=== PATIENT | male | born 1975 | race Caucasian/White ===

== ENCOUNTER 2018-03-20 12:52 | Emergency (ER) | payer MEDICAID, OTHER ==
[~2018-03-20] VITALS: Ht 175.3 cm; Wt 72.6 kg
[~2018-03-20 12:52] MED LIST: LEVO25TA6 PO
[2018-03-20 13:27] VITALS: BP 106/71
[2018-03-20] MEDS ORDERED: LET TOPICAL SOLN 5 ML TOP ONE (16:15)
[2018-03-20] MEDS ORDERED: HYDROcodone-ACET 10/325MG TAB PO ONE (16:15)
== END 2018-03-20 17:19 | disposition home or self-care (01) ==
LOC: ER 12:52
DX: K64.4 Residual hemorrhoidal skin tags (principal); Z87.442 Personal history of urinary calculi

== ENCOUNTER 2022-06-05 07:52 | Emergency (ER) | payer OTHER, MEDICAID ==
[~2022-06-05] VITALS: Ht 175.3 cm; Wt 64.5 kg
[2022-06-05 08:11] VITALS: BP 120/69
[2022-06-05 08:56] LABS: Basophils # (auto) 0 10 ^3/uL (0-0.2); Basophils % (auto) 0.4 % (0.0-2.0); Eosinophils # (auto) 0 10 ^3/uL (0-0.8); Eosinophils % (auto) 0.4 % (0.0-7.0); Hematocrit 45.8 % (41.0-53.0); Lymphocytes # (auto) 0.7 10 ^3/uL (0.4-5.4); Lymphocytes % (auto) 19.5 % (10.0-50.0); Mean Corpuscular Hemoglobin 30.8 pg (28.0-32.0); Monocytes # (auto) 0.5 10 ^3/uL (0-1.3); Monocytes % (auto) 13.4 % (0.0-12.0); Neutrophils # (auto) 2.5 10 ^3/uL (1.6-8.6); Neutrophils % (auto) 66.3 % (37.0-80.0); Nucleated Red Blood Cells % 0.3 %; Red Blood Cells 5.21 10^6/uL (4.5-5.90); Red Cell Distribution Width 13.7 % (11.8-14.3); White Blood Cell 3.8 10^3/uL (4.4-10.8)
[2022-06-05 09:04] LABS: Albumin 4.1 g/dL (3.4-5.0); Calcium 9.1 mg/dL (8.5-10.1); Potassium 4.3 mmol/L (3.5-5.1)
[2022-06-05 09:09] LABS: BUN/Creatinine Ratio 14.3; Bilirubin, Total 0.8 mg/dL (0.2-1.0); Total Protein 6.9 g/dL (6.4-8.2)
[2022-06-05 09:40] LABS: Urine Bacteria NONE SEEN /hpf (None Seen); Urine Blood Negative /uL (Negative); Urine Mucus FEW (None Seen); Urine Specific Gravity 1.029 (1.001-1.035); Urine WBC 2 /hpf (0 - 3)
[2022-06-05] MEDS ORDERED: SODIUM CHLORIDE 0.9% 1,000 ML IV ONE (11:30)
[2022-06-05] MEDS ORDERED: SODIUM CHLORIDE 0.9% 1,000 ML IVB ONE (11:30)
[2022-06-05] MEDS ORDERED: ALBUTEROL SULF 2.5 MG/0.5ML(0.5%) NEB SOLN NEB ONE (11:30)
[2022-06-05] MEDS ORDERED: IPRATROPIUM BROM 0.5 MG/2.5ML INH SOL NEB ONE (11:30)
== END 2022-06-05 15:13 | disposition left against medical advice (07) ==
LOC: ER 07:52
DX: B34.9 Viral infection, unspecified (principal); J40 Bronchitis, not specified as acute or chronic; E03.9 Hypothyroidism, unspecified; Z20.822 Contact with and (suspected) exposure to COVID-19
CPT/HCPCS: 36415; 71046; 80053; 81001; 83735; 84443; 84484; 85025; 87426; 87804; 93005; 94640; 99285; J7644

== ENCOUNTER 2024-09-15 23:39 | Emergency (ER) | payer OTHER, MEDICAID ==
[~2024-09-15] VITALS: Ht 177.8 cm; Wt 69.1 kg
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
[2024-09-16] MEDS: LIDOCAINE W/ EPINEPHRINE 2% INJ 20ML VIAL IJ ONE (00:46)
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
[2024-09-16 02:01] VITALS: BP 126/84; PULSE 74; RESP 17; TEMP 98; O2SAT 98
[2024-09-16] MEDS: HYDROcodone-ACET 5/325MG TAB PO ONE (02:08)
[2024-09-16] MEDS: TETANUS-DIPTH-ACEL PERTUSSIS 0.5ML SYR Tdap IM ONE (02:09)
== END 2024-09-16 02:24 | disposition home or self-care (01) ==
LOC: ER 23:39
DX: S01.01XA Laceration without foreign body of scalp, initial encounter (principal); S01.81XA Laceration without foreign body of other part of head, initial encounter; M19.90 Unspecified osteoarthritis, unspecified site; Z79.899 Other long term (current) drug therapy; Y00.XXXA Assault by blunt object, initial encounter; Y93.89 Activity, other specified; Y92.009 Unspecified place in unspecified non-institutional (private) residence as the place of occurrence of the external cause; Y99.8 Other external cause status
CPT/HCPCS: 12001; 12011; 70450; 72125; 90471; 90715

== ENCOUNTER 2025-06-06 06:27 | Inpatient (IN) | payer MEDICAID ==
[~2025-06-06] VITALS: Ht 175.3 cm; Wt 73.3 kg
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
[2025-06-06 08:15] VITALS: PULSE 52; RESP 11; O2SAT 97
[2025-06-06] MEDS ORDERED: ONDANSETRON HCL 4 MG/2 ML VIAL IV PRN (08:15)
--- NOTE | 2025-06-06 08:16 | DVHHP2 ---
History of Present Illness Reason for Visit: Seizure History of Present Illness Erwin Reyna is a 50-year-old male with past medical history of arthritis, nephrolithiasis, hypothyroidism who presents to the ED with status post seizure that occurred while he was sleeping at 5:00 a.m. with reports of tonic-clonic activity and urine incontinence with foaming at the mouth lasting approximately 3 minutes. Patient states that he does not recall what happened last night or what happened during the seizure but that his was there to witness it. Patient reports that this is the 1st seizure that he has had and that he does not see a neurologist. Upon evaluation after discussing history with patient, he shortly had an active seizure with tonic-clonic activity lasting about 1-2 minutes. Patient was given Ativan and placed on a non-rebreather as patient was desaturating to 91% on room air. Patient denies any recent trauma or injury, recent sick contacts, recent travels, recent ingestion of spoiled food, chest pain, shortness of breath, fever, chills, lightheadedness, weakness, dizziness, abdominal pain, nausea, vomiting, diarrhea, urinary symptoms. Endocrine: Hypothyroidism Past Medical History Arthritis Nephrolithiasis Past Surgical History: Other (EGD, left total hip replacement, and right total knee replacement) Family History: None Smoke: No ALCOHOL: none Drugs: Marijuana Lives: with Family Domestic Violence: Neg Review of Systems Neurological: Seizures Allergies: Coded Allergies: NO KNOWN ALLERGIES (Unverified , 02/02/16) Exam Vital Signs Vital Signs Date Time Temp Pulse Resp B/P (MAP) Pulse Ox O2 Delivery O2 Flow Rate FiO2 06/06/25 06:27 97.1 77 18 119/75 100 97.1 General Appearance: Alert, Oriented X3, Cooperative HEENT: Atraumatic, PERRLA, EOMI, Mucous membr. moist/pink Respiratory: Normal air movement Cardiovascular: Normal S1, Normal S2 Abdominal: Normal bowel sounds, Soft Extremities: No clubbing, No cyanosis, No edema, Normal pulses Neuro: Normal speech, Normal tone, Sensation intact Psych/Mental Status: Mental status NL, Mood NL Labs/Xrays Labs Test 06/06/25 08:04 Range/Units EXAM: CT HEAD WITHOUT CONTRAST INDICATION: Rule out intracranial hemorrhage. TECHNIQUE: CT of the head without intravenous contrast. Coronal and sagittal reformatted images are submitted. Radiation Dose : 1. Head: CT Dose: CTDI volume is 53.5 mGy. Dose-length product is 966.7 mGy*cm The dose indicators for CT are the volume Computed Tomography (CT) Dose Index (CTDIvol) and the Dose Length Product (DLP), and are measured in units of mGy and mGy-cm, respectively. These indicators are not patient dose, but values generated from the CT scanner acquisition factors. The report includes radiation exposure data for exposures received during this examination. All CT scans at this medical facility are performed using dose modulation techniques as appropriate to a performed exam including the following: Automated exposure control was utilized; adjustment of the MA and/or KV according to patient size; and use of iterative reconstruction technique. COMPARISON: CT HEAD WITHOUT CONTRAST on DOS: 09/16/24. FINDINGS: There is no evidence of acute intracranial hemorrhage, extra-axial collection, mass effect, midline shift, herniation or hydrocephalus. The ventricles, sulci and cisterns are age appropriate. The terry-white differentiation is intact. The visualized paranasal sinuses and mastoid air cells are clear. No depressed calvarial fracture. The surrounding soft tissues are unremarkable. IMPRESSION: 1. No evidence of acute intracranial abnormality. SEPSIS Sepsis Screen Date sepsis recognized/suspect: Jun 06, 2025 Time Sepsis recognized/suspect: 626 Recent Procedure: No On Antibiotic Therapy: No Respiratory Rate >20: No Heart Rate >90: No Temp<36 C (96.8 F) or >38.3 C: No SBP <90 or MAP <65 mmHG: No New Acute Mental Status Change: No Is the patient on CPAP, BIPAP,: No Physician Orders Complete Blood Count (06/06/25 07:05) Basic Metabolic Panel (06/06/25 07:05) Drug Screen (06/06/25 07:05) Urine Ethanol (06/06/25 07:05) Head Without Contrast (06/06/25 07:05) Vital Signs Date Time Temp Pulse Resp B/P (MAP) Pulse Ox O2 Delivery O2 Flow Rate FiO2 06/06/25 06:27 97.1 77 18 119/75 100 97.1 Laboratory Tests Test 06/06/25 08:04 White Blood Count Pending Assessment/Plan Assessment/Plan Assessment Seizure disorder Positive marijuana use History of arthritis History of nephrolithiasis History of hypothyroidism History of EGD History of left total hip replacement History of right total knee replacement Plan Admit To med surge Seizure precautions Ativan p.r.n. for seizures CT head Urine ethanol UDS Keppra UA Diet Home medications reconciled DVT prophylaxis-not indicated patient ambulating PUD prophylaxis-not indicated no history of GERD or GI bleed Discussed plan of care with patient and nurse Counseled patient on cessation of marijuana use Neurology consult [id number] Behavior change smoking greater than 10 minutes about use of other options also gave option of nicotine patch [id number] Preventive counseling healthy eating habits, physical activity, and regular checkups Plan discussed with: Patient Date of Service: Jun 06, 2025 Billing Provider: JEFFERY GAYTAN Common Visit Codes: [id number] INP/OBS CARE (HIGH) Secondary Visit Codes: [id number] COUNSELING IND, [id number] CHNG SMOKING >10MIN JEFFERY GAYTAN Jun 06, 2025 08:16
[2025-06-06 08:18] LABS: Hematocrit 41.0 % (41.0-53.0); Hemoglobin 14.6 g/dL (13.5-17.5); Mean Corpuscular Hemoglobin 31.9 pg (28.0-32.0); Mean Corpuscular Volume 90.0 fL (80.0-100.0); Nucleated Red Blood Cells % 0.1 %
[2025-06-06] MEDS: ACETAMINOPHEN 325 MG TAB PO ONE (08:22)
--- NOTE | 2025-06-06 08:24 | DVH ---
EXAM: CT HEAD WITHOUT CONTRAST INDICATION: Rule out intracranial hemorrhage. TECHNIQUE: CT of the head without intravenous contrast. Coronal and sagittal reformatted images are submitted. Radiation Dose : 1. Head: CT Dose: CTDI volume is 53.5 mGy. Dose-length product is 966.7 mGy*cm The dose indicators for CT are the volume Computed Tomography (CT) Dose Index (CTDIvol) and the Dose Length Product (DLP), and are measured in units of mGy and mGy-cm, respectively. These indicators are not patient dose, but values generated from the CT scanner acquisition factors. The report includes radiation exposure data for exposures received during this examination. All CT scans at this medical facility are performed using dose modulation techniques as appropriate to a performed exam including the following: Automated exposure control was utilized; adjustment of the MA and/or KV according to patient size; and use of iterative reconstruction technique. COMPARISON: CT HEAD WITHOUT CONTRAST on DOS: 09/16/24. FINDINGS: There is no evidence of acute intracranial hemorrhage, extra-axial collection, mass effect, midline shift, herniation or hydrocephalus. The ventricles, sulci and cisterns are age appropriate. The terry-white differentiation is intact. The visualized paranasal sinuses and mastoid air cells are clear. No depressed calvarial fracture. The surrounding soft tissues are unremarkable. IMPRESSION: 1. No evidence of acute intracranial abnormality.
[2025-06-06 08:26] LABS: Potassium 4.0 mmol/L (3.5-5.1); Sodium 140 mmol/L (136-145)
[2025-06-06 08:27] LABS: Anion Gap 6 (5-15); Carbon Dioxide 25 mmol/L (20-31)
[2025-06-06] MEDS ORDERED: LEVOTHYROXINE SODIUM 25 MCG TAB PO SCH (08:27)
[2025-06-06 08:28] LABS: Calcium 9.1 mg/dL (8.7-10.4)
[2025-06-06 08:32] LABS: BUN/Creatinine Ratio 15.0 (10.0-20.0); Blood Urea Nitrogen 15 mg/dL (9-23)
[2025-06-06 08:34] LABS: Chloride 109 mmol/L (98-107); Glucose 110 mg/dL (74-106)
[2025-06-06 09:04] LABS: Amphetamine Screen, Urine Neg (NEGATIVE); Barbiturate Scree,Urine Neg (NEGATIVE); Benzodiazephine Screen, Urine Neg (NEGATIVE); Cannabinoid Screen, Urine Pos (NEGATIVE); Cocaine Screen, Urine Neg (NEGATIVE); Opiate Scree,Urine Neg (NEGATIVE); Phencyclidine Screen, Urine Neg (NEGATIVE)
[2025-06-06] MEDS: LORazepam 2MG/ML-1ML VIAL IV ONE (09:30)
[2025-06-06] MEDS: levETIRAcetam 1000 mg/100ml 100 ML IV ONE (09:40)
[2025-06-06] MEDS: LORazepam 2MG/ML-1ML VIAL ONE (09:41)
[2025-06-06] MEDS ORDERED: levETIRAcetam 500 mg/100ml 100 ML IV SCH (10:00)
[2025-06-06] MEDS: levETIRAcetam 1000 mg/100ml 100 ML IV SCH (10:56)
[2025-06-06] MEDS: LEVOTHYROXINE SODIUM 100 MCG TAB PO SCH (10:57)
[2025-06-06 11:04] LABS: Urine Protein, UAD TRACE (Negative)
[2025-06-06 13:05] VITALS: BP 114/68; PULSE 56; RESP 18; TEMP 98; O2SAT 95
--- NOTE | 2025-06-06 14:43 | DVHINCON2 ---
Date of service: Jun 06, [address] Cordon Reason for Consultation Seizure History of Present Illness Mr. Reyna is a 50 years old right-handed gentleman with a history of hypothyroidism, kidney stone, arthritis, he is brought to the [facility] on 06/06/2025 with a chief complaint of seizure activity, at this time, he is alert and fully oriented, he provided the following history He remembers going to the bed in the evening, but next memory was waking up in his father's car heading the hospital, because he had seizure. In the ER, he had another seizure-like activity. According to the ER note, at home, he had tonic-clonic activity with urinary incontinence, foaming in the mouth, the event was about 3 minutes. He has never had similar problem before, he denies a history of olfactory/gustatory hallucination He denies history of head trauma, intracranial infection, family history of seizure disorder He denies a history of drug/alcohol abuse He has no sleep deprivation, or acute illness recently Urinalysis, 06/06/2025: Unremarkable UDS, 06/06/2025: Cannabinoids Plasma alcohol, 06/06/2025: Normal WBC/HB/PLT/MCV, 06/06/2025: 6/40.6/107/90 BMP, 06/06/2025: Unremarkable CT head, 06/06/2025: No evidence of acute intracranial abnormality. Past Medical History Hypothyroidism, kidney stone, arthritis Past Surgical History Hip surgery, abdominal surgery Family History: Patient reports no known family medical history. Family History No major medical problems Social History He was a tobacco smoker, he denies a history of alcohol and drug abuse Allergies: Coded Allergies: NO KNOWN ALLERGIES (Unverified , 02/02/16) Home Meds Reported Medications Levothyroxine Sodium (Levothyroxine Sodium) 25 Mcg Tab, 10 MCG PO QAM, MCG 02/02/16 Current Medications Current Medications Medications (Trade) Dose Ordered Sig/Irma Route PRN Reason Start Time Stop Time Status Last Admin Levetiracetam 100 ml @ 400 mls/hr BID IV 06/06/25 10:00 06/06/25 10:35 DC Ondansetron HCl (Zofran) 4 mg Q4HP PRN IV NAUSEA / VOMITING 06/06/25 08:15 Acetaminophen (Tylenol Tablet) 650 mg Q6HP PRN PO PAIN SCALE 1-3 OR TEMP>100.4 06/06/25 08:15 Levothyroxine Sodium (Synthroid Tablet) 10 mcg QAM PO 06/06/25 08:27 06/06/25 10:35 DC Lorazepam (Ativan Inj) 1 mg Q5MINP PRN IV SEIZURES 06/06/25 10:30 Levothyroxine Sodium (Synthroid Tablet) 100 mcg QAM@0600 PO 06/06/25 10:57 Levetiracetam 100 ml @ 400 mls/hr BID IV 06/06/25 10:56 Review of Systems As above, the other systems are negative Vital Signs Vital Signs Date Time Temp Pulse Resp B/P (MAP) Pulse Ox O2 Delivery O2 Flow Rate FiO2 06/06/25 13:05 98.0 56 18 114/68 (83) 95 98.0 06/06/25 08:15 Room Air* 0 21 Physical Exam GENERAL EXAM: General: the patient is well developed and nourished. No acute distress. HEENT: Normocephalic, neck is supple, no carotid bruits. No mass. RESPIRATORY: Normal respiratory effort with symmetrical lung expansion. Lungs clear to auscultation. CARDIOVASCULAR: Regular rate and rhythm with no murmurs. S1, S2. ABDOMEN: Soft, nontender, normal bowel sound NEUROLOGICAL: MENTAL STATUS: Awake and alert. Oriented to person, place, time and general circumstances. Able to give personal history SPEECH, LANGUAGE, HIGHER CORTICAL FUNCTION: no aphasia or dysathria. CRANIAL NERVES: #2: Intact visual sheriff to confrontation. The optic discs were sharp. #3,4,6: Pupils are equal, round and reactive. EOMs full and conjugate. No nystagmus. #5: Facial sensation intact in all three divisions bilaterally. Mandibular str ength intact. #7: Facial muscles symmetrical and strength intact. #8: Hearing grossly normal to voice. #9,10: Uvula and soft palate rise in the midline. Swallow and voice are normal. #11: Trapezius and sternomastoid strength intact bilaterally. #12: Tongue midline. No fasciculations or atrophy. SENSATION: Sensation to touch and pinprick is normal. MOTOR: Normal tone in the upper and lower extremity. Normal muscle bulk. No fasciculations. No abnormal movements or posturing. Muscle strength of the major groups in the upper extremities is 5/5. Muscle strength of the major groups in the lower extremities is 5/5. REFLEXES: Deep tendon reflexes normal and symmetrical. No pathological reflexes. CEREBELLAR/COORDINATION: Finger to nose is normal bilaterally. GAIT/STATION: deferred. Labs/Diagnostic Data Labs Test 06/06/25 08:04 06/06/25 07:59 Range/Units White Blood Count 6.0 4.4-10.8 10^3/uL Red Blood Count 4.56 4.5-5.90 10^6/uL Hemoglobin 14.6 13.5-17.5 g/dL Hematocrit 41.0 41.0-53.0 % Mean Corpuscular Volume 90.0 80.0-100.0 fL Mean Corpuscular Hemoglobin 31.9 28.0-32.0 pg Mean Corpuscular Hemoglobin Concent 35.5 32.0-36.0 g/dL Red Cell Distribution Width 13.9 11.8-14.3 % Platelet Count 107 L 140-450 10^3/uL Mean Platelet Volume 9.9 6.9-10.8 fL Neutrophils (%) (Auto) 85.8 H 37.0-80.0 % Lymphocytes (%) (Auto) 6.8 L 10.0-50.0 % Monocytes (%) (Auto) 6.3 0.0-12.0 % Eosinophils (%) (Auto) 0.8 0.0-7.0 % Basophils (%) (Auto) 0.3 0.0-2.0 % Neutrophils # (Auto) 5.2 1.6-8.6 10 ^3/uL Lymphocytes # (Auto) 0.4 0.4-5.4 10 ^3/uL Monocytes # (Auto) 0.4 0-1.3 10 ^3/uL Eosinophils # (Auto) 0 0-0.8 10 ^3/uL Basophils # (Auto) 0 0-0.2 10 ^3/uL Nucleated Red Blood Cells 0.1 % Sodium Level 140 136-145 mmol/L Potassium Level 4.0 3.5-5.1 mmol/L Chloride Level 109 H 98-107 mmol/L Carbon Dioxide Level 25 20-31 mmol/L Anion Gap 6 5-15 Blood Urea Nitrogen 15 9-23 mg/dL Creatinine 1.00 0.700-1.30 mg/dL Glomerular Filtration Rate Calc 93 >90 mL/min BUN/Creatinine Ratio 15.0 10.0-20.0 Serum Glucose 110 H 74-106 mg/dL Calcium Level 9.1 8.7-10.4 mg/dL Plasma/Serum Blood Alcohol < 3.0 <10 mg/dL Urine Color Yellow Yellow Urine Clarity Clear Clear Urine pH 6.5 5.0-9.0 Urine Specific [place] 1.028 1.001-1.035 Urine Protein Trace H Negative Urine Ketones Trace Negative Urine Blood Negative Negative /uL Urine Nitrite Negative Negative Urine Bilirubin Negative Negative Urine Urobilinogen Normal Negative mg/dL Urine Leukocyte Esterase Negative Negative /uL Urine RBC 1 0 - 3 /hpf Urine Microscopic WBC 2 0-3 /HPF Urine Squamous Epithelial Cells Few <5 /hpf Urine Calcium Oxalate Crystals Few None Seen Urine Bacteria None seen None Seen /hpf Urine Hyaline Casts Few 0 - 2 /lpf Urine Mucus Few None Seen Urine Glucose Normal Normal mg/dL Urine Opiates Screen Neg NEGATIVE Urine Fentanyl Screen Neg NEGATIVE Urine Barbiturates Screen Neg NEGATIVE Urine Phencyclidine Screen Neg NEGATIVE Urine Amphetamines Screen Neg NEGATIVE Urine Benzodiazepines Screen Neg NEGATIVE Urine Cocaine Screen Neg NEGATIVE Urine Cannabinoids Screen Pos NEGATIVE Assessment New onset seizure Grand mal seizure Status epilepticus Plan/Recommendation Monitoring Supportive treatment Telemetry EEG MR brain scan Ativan for seizure breakthrough Keppra for now He has been advised not drive and he is cleared DMV report in the chart More recommendation per clinical course Prognosis: Poor This medical document was created using an electronic medical record system with [employer] computerized dictation system. Although this document has been carefully reviewed, there may still be some phonetic and typographical errors. These areas are purely typographical due to imperfections of the software programs, and do not reflect any compromise in the patient's medical care. Plan discussed with: Patient, Other DANN MCADAMS MD Jun 06, 2025 14:43
[2025-06-06 17:30] VITALS: BP 114/75; PULSE 54; RESP 16; TEMP 98.4; O2SAT 97
[2025-06-06] MEDS: ACETAMINOPHEN 325 MG TAB PO PRN (18:36)
[2025-06-06] MEDS ORDERED: LORazepam 2MG/ML-1ML VIAL IV PRN (19:15)
[2025-06-06 20:00] VITALS: PULSE 60; RESP 18; O2SAT 100
[2025-06-06 21:00] VITALS: BP 107/54; PULSE 60; RESP 17; TEMP 96.1; O2SAT 100
[2025-06-07] VITALS (7 sets, daily range): BP systolic 96–119; BP diastolic 60–84; PULSE 50–67; RESP 6–18; TEMP 96.4–98.6; O2SAT 96–100
[2025-06-07] MEDS: ACETAMINOPHEN 325 MG TAB PO PRN (05:18)
[2025-06-07 07:02] LABS: Hematocrit 40.0 % (41.0-53.0); Hemoglobin 14.0 g/dL (13.5-17.5); Mean Corpuscular Hemoglobin 31.6 pg (28.0-32.0); Mean Corpuscular Volume 90.0 fL (80.0-100.0); Nucleated Red Blood Cells % 0.2 %
[2025-06-07 07:24] LABS: Alanine Aminotransferase 16 U/L (7-40); Albumin 4.0 g/dL (3.2-4.8); Alkaline Phosphatase 63 U/L (46-116); Anion Gap 7 (5-15); BUN/Creatinine Ratio 12.0 (10.0-20.0); Blood Urea Nitrogen 11 mg/dL (9-23); Calcium 8.8 mg/dL (8.7-10.4); Carbon Dioxide 26 mmol/L (20-31); Glucose 90 mg/dL (74-106); Potassium 3.8 mmol/L (3.5-5.1); Sodium 142 mmol/L (136-145); Total Protein 6.2 g/dL (5.7-8.2)
[2025-06-07 07:25] LABS: Bilirubin, Total 1.0 mg/dL (0.2-1.0)
[2025-06-07 07:31] LABS: Chloride 109 mmol/L (98-107)
--- NOTE | 2025-06-07 12:53 | DVHPN2 ---
Reviewed: Care Plan, H&P, Labs, Medications, Previous Orders, Radiology Changes from previous H/P or p: No Changes Objective Vitals Vital Signs Date Time Temp Pulse Resp B/P (MAP) Pulse Ox O2 Delivery O2 Flow Rate FiO2 06/07/25 09:00 98.1 50 7 119/84 (96) 98 98.1 06/07/25 08:00 Room Air* 0 21 Intake/Output Intake and Output 06/07/25 07:00 Intake Total 900 ml Output Total 400 ml Balance 500 ml Intake Oral 900 ml Output Urine Total 400 ml # Voids 1 Medications Current Medications Medications Dose Ordered Sig/Irma Route Start Time Stop Time Status Last Admin Dose Admin Ondansetron HCl 4 mg Q4HP PRN IV 06/06/25 08:15 Lorazepam 1 mg Q5MINP PRN IV 06/06/25 10:30 Levothyroxine Sodium 100 mcg QAM@0600 PO 06/06/25 10:57 06/07/25 05:16 100 MCG Levetiracetam 100 ml @ 400 mls/hr BID IV 06/06/25 10:56 06/07/25 09:23 400 MLS/HR Lorazepam 1 mg ONCE PRN IV 06/06/25 19:15 06/11/25 19:14 Acetaminophen 650 mg Q6H PRN PO 06/07/25 05:15 06/07/25 05:18 650 MG Laboratory Results Laboratory Tests 06/07/25 06:43 Chemistry Test 06/07/25 06:43 Albumin 4.0 g/dL (3.2-4.8) Calcium Level 8.8 mg/dL (8.7-10.4) Total Protein 6.2 g/dL (5.7-8.2) LFT Test 06/07/25 06:43 Alanine Aminotransferase (ALT) 16 U/L (7-40) Alkaline Phosphatase 63 U/L (46-116) Aspartate Amino Transferase (AST) 18 U/L (13-40) Total Bilirubin 1.0 mg/dL (0.2-1.0) Urinalysis Test 06/06/25 07:59 Urine Color Yellow (Yellow) Urine Clarity Clear (Clear) Urine pH 6.5 (5.0-9.0) Urine Specific [place] 1.028 (1.001-1.035) Urine Protein Trace (Negative) H Urine Ketones Trace (Negative) Urine Blood Negative /uL (Negative) Urine Nitrite Negative (Negative) Urine Bilirubin Negative (Negative) Urine Urobilinogen Normal mg/dL (Negative) Urine Leukocyte Esterase Negative /uL (Negative) Urine RBC 1 /hpf (0 - 3) Urine Microscopic WBC 2 /HPF (0-3) Urine Squamous Epithelial Cells Few /hpf (<5) Urine Calcium Oxalate Crystals Few (None Seen) Urine Bacteria None seen /hpf (None Seen) Urine Hyaline Casts Few /lpf (0 - 2) Urine Mucus Few (None Seen) Urine Glucose Normal mg/dL (Normal) Labs and/or images reviewed: Labs reviewed by me, Image(s) reviewed by me Assessment/Plan Assessment/Plan New onset seizure: Seen by Neurology Dr. Alves Grand mal seizure Status epilepticus CT head negative Urine drug screen negative except for marijuana EEG MR brain scan Ativan for seizure breakthrough Keppra for now He has been advised not drive and he is cleared DMV report in the chart Time spent 45 mts Plan discussed with: Patient Date of Service: Jun 07, 2025 Billing Provider: MITCHELL KLEIN MD Common Visit Codes: [id number] INP/OBS CARE(HIGH) MITCHELL KLEIN MD Jun 07, 2025 12:53
--- NOTE | 2025-06-07 13:39 | DVH ---
EXAM: MRI BRAIN HEAD WO CONTRAST HISTORY: seiure TECHNIQUE: Multiplanar and multisequence MR imaging of the head was performed. COMPARISON: CT HEAD WITHOUT CONTRAST on DOS: 06/06/25 FINDINGS: The ventricles and subarachnoid spaces are normal in size and configuration. Brain parenchyma is normal in signal. There is no midline shift or mass effect. The vascular flow-voids are unremarkable. Diffusion weighted imaging is not indicative of acute or recent infarct. Trace mucosal thickening of the bilateral maxillary sinuses. IMPRESSION: 1. No acute or recent infarct. 2. No acute abnormality.
--- NOTE | 2025-06-07 21:28 | DVHPN2 ---
Progress Note - Dictate Date Seen: Jun 07, 2025 Medical Necessity Reason Pt with a Central, PICC or Fol: No Subjective Mr. Reyna is a 50 years old right-handed gentleman with a history of hypothyroidism, kidney stone, arthritis, he is brought to the [facility] on 06/06/2025 with a chief complaint of seizure activity, I have seen and examined the patient, I have discussed with his nurse, he is alert and fully oriented, doing fine, no seizure activity. Again I have discussed with him about his seizure, common seizure triggers Urinalysis, 06/06/2025: Unremarkable UDS, 06/06/2025: Cannabinoids Plasma alcohol, 06/06/2025: Normal WBC/HB/PLT/MCV, 06/06/2025: 6/40.6/107/90 BMP, 06/06/2025: Unremarkable CT head, 06/06/2025: No evidence of acute intracranial abnormality MRI brain, 06/07/2025, 1. No acute or recent infarct. 2. No acute abnormality. vital signs Vital Sign Date Time Temp Pulse Resp B/P (MAP) Pulse Ox O2 Delivery O2 Flow Rate FiO2 06/07/25 17:06 98.6 54 6 111/69 (83) 98 98.6 06/07/25 08:00 Room Air* 0 21 Total Intake and Output 06/06/25 06/06/25 06/07/25 15:00 23:00 07:00 Intake Total 620 ml 280 ml Output Total 400 ml Balance 620 ml -120 ml medications Current Medications Medications Dose Ordered Sig/Irma Route Start Time Stop Time Status Last Admin Dose Admin Ondansetron HCl 4 mg Q4HP PRN IV 06/06/25 08:15 Lorazepam 1 mg Q5MINP PRN IV 06/06/25 10:30 Levothyroxine Sodium 100 mcg QAM@0600 PO 06/06/25 10:57 06/07/25 05:16 100 MCG Levetiracetam 100 ml @ 400 mls/hr BID IV 06/06/25 10:56 06/07/25 21:15 400 MLS/HR Lorazepam 1 mg ONCE PRN IV 06/06/25 19:15 06/11/25 19:14 Acetaminophen 650 mg Q6H PRN PO 06/07/25 05:15 06/07/25 05:18 650 MG objective General: the patient is well developed and nourished. No acute distress. HEENT: Normocephalic, neck is supple, no carotid bruits. No mass. MENTAL STATUS: Subjective SPEECH, LANGUAGE, HIGHER CORTICAL FUNCTION: no aphasia or dysathria. CRANIAL NERVES: Pupils are equal, round and reactive. EOMs full and conjugate. No nystagmus. Facial sensation intact in all three divisions bilaterally. Mandibular strength intact. Facial muscles symmetrical and strength intact. Tongue midline. No fasciculations or atrophy. SENSATION: Sensation to touch and pinprick is normal. MOTOR: Normal tone in the upper and lower extremity. Normal muscle bulk. No fasciculations. No abnormal movements or posturing. Muscle strength of the major groups in the extremities is 5/5. REFLEXES: Deep tendon reflexes normal and symmetrical. No pathological reflexes. CEREBELLAR/COORDINATION: Finger to nose is normal bilaterally. GAIT/STATION: deferred laboratory and microbiology Laboratory Tests 06/07/25 06:43 Test 06/07/25 06:43 Range/Units Serum Glucose 90 74-106 mg/dL Problem List New onset seizure Grand mal seizure Status epilepticus Assessment/Plan Monitoring Supportive treatment Telemetry EEG Ativan for seizure breakthrough Keppra for now He has been advised not drive and he is cleared DMV report in the chart More recommendation per clinical course This medical document was created using an electronic medical record system with [employer] dictation system. Although this document has been carefully reviewed, there may still be some phonetic and typographical errors. These areas are purely typographical due to imperfections of the software programs, and do not reflect any compromise in the patient's medical care. Prognosis poor Plan discussed with: Patient, Other DANN MCADAMS MD Jun 07, 2025 21:28
[2025-06-08 01:00] VITALS: BP 128/66; PULSE 60; RESP 14; TEMP 98.3; O2SAT 99
[2025-06-08 04:54] VITALS: BP 106/68; PULSE 45; RESP 16; TEMP 98.1; O2SAT 100
[2025-06-08 09:00] VITALS: BP 138/77; PULSE 46; RESP 17; TEMP 98.3; O2SAT 99
--- NOTE | 2025-06-08 10:10 | DVHPN2 ---
Reviewed: Care Plan, H&P, Labs, Medications, Previous Orders, Radiology Changes from previous H/P or p: No Changes Objective Vitals Vital Signs Date Time Temp Pulse Resp B/P (MAP) Pulse Ox O2 Delivery O2 Flow Rate FiO2 06/08/25 09:00 98.3 46 17 138/77 (97) 99 98.3 06/08/25 08:00 Room Air* 0 21 Intake/Output Intake and Output 06/08/25 07:00 Intake Total 920 ml Balance 920 ml Intake Oral 920 ml # Voids 3 # Bowel Movements 1 Medications Current Medications Medications Dose Ordered Sig/Irma Route Start Time Stop Time Status Last Admin Dose Admin Ondansetron HCl 4 mg Q4HP PRN IV 06/06/25 08:15 Lorazepam 1 mg Q5MINP PRN IV 06/06/25 10:30 Levothyroxine Sodium 100 mcg QAM@0600 PO 06/06/25 10:57 06/08/25 05:21 100 MCG Levetiracetam 100 ml @ 400 mls/hr BID IV 06/06/25 10:56 06/07/25 21:15 400 MLS/HR Lorazepam 1 mg ONCE PRN IV 06/06/25 19:15 06/11/25 19:14 Acetaminophen 650 mg Q6H PRN PO 06/07/25 05:15 06/08/25 04:23 650 MG Laboratory Results Laboratory Tests 06/07/25 06:43 Urinalysis Test 06/06/25 07:59 Urine Color Yellow (Yellow) Urine Clarity Clear (Clear) Urine pH 6.5 (5.0-9.0) Urine Specific [place] 1.028 (1.001-1.035) Urine Protein Trace (Negative) H Urine Ketones Trace (Negative) Urine Blood Negative /uL (Negative) Urine Nitrite Negative (Negative) Urine Bilirubin Negative (Negative) Urine Urobilinogen Normal mg/dL (Negative) Urine Leukocyte Esterase Negative /uL (Negative) Urine RBC 1 /hpf (0 - 3) Urine Microscopic WBC 2 /HPF (0-3) Urine Squamous Epithelial Cells Few /hpf (<5) Urine Calcium Oxalate Crystals Few (None Seen) Urine Bacteria None seen /hpf (None Seen) Urine Hyaline Casts Few /lpf (0 - 2) Urine Mucus Few (None Seen) Urine Glucose Normal mg/dL (Normal) Labs and/or images reviewed: Labs reviewed by me, Image(s) reviewed by me Assessment/Plan Assessment/Plan New onset seizure: Seen by Neurology Dr. Alves placed on Keppra and Ativan p.r.n. Grand mal seizure Status epilepticus CT head negative Urine drug screen negative except for marijuana EEG pending MRI brain negative He has been advised not drive and he is cleared DMV report in the chart Time spent 45 mts Plan discussed with: Patient Date of Service: Jun 08, 2025 Billing Provider: MITCHELL KLEIN MD Common Visit Codes: [id number] INP/OBS CARE(HIGH) MITCHELL KLEIN MD Jun 08, 2025 10:10
[2025-06-08 13:00] VITALS: BP 124/79; PULSE 49; RESP 18; TEMP 98.1; O2SAT 99
[2025-06-08 17:00] VITALS: BP 115/70; PULSE 51; RESP 18; TEMP 97.6; O2SAT 98
[2025-06-08] MEDS: LORazepam 2MG/ML-1ML VIAL IV PRN (18:17)
--- NOTE | 2025-06-08 20:25 | DVHEEG2 ---
Neurology EEG Procedural Note Procedural Note EXAM DATE: 06/08/2025 REFERRING DOCTOR: Dr. Mcadams TECHNIQUE: Eighteen channels of EEG, 2 channels of EOG, and 1 channel of EKG were recorded using the International 10/20 system. CLINICAL DATA: The patient was referred for an EEG evaluation for the evidence of seizure disorder. MEDICATIONS: See the chart BACKGROUND ACTIVITY: While the patient was awake, the background activity consisted of well regulated 9-10 Hz rhythmic waveforms, symmetrically distributed over both posterior quadrants and was reactive to eye opening. ACTIVATION: Hyperventilation: Not seen Photic Stimulation: No photic convulsive response Sleep: Not seen IMPRESSION: This is a normal EEG. No focal, lateralized, or epileptiform features are noted. If clinically indicated to rule out a seizure disorder, recommend repeat EEG with sleep deprivation. The EKG channel showed a regular heart rate of 45 per minute. [place] [address] DANN MCADAMS MD Jun 08, 2025 20:25
[2025-06-08 21:00] VITALS: BP 93/41; PULSE 48; RESP 20; TEMP 97.8; O2SAT 96
--- NOTE | 2025-06-08 21:49 | DVHPN2 ---
Progress Note - Dictate Date Seen: Jun 08, 2025 Medical Necessity Reason Pt with a Central, PICC or Fol: No Subjective Mr. Reyna is a 50 years old right-handed gentleman with a history of hypothyroidism, kidney stone, arthritis, he is brought to the [facility] on 06/06/2025 with a chief complaint of seizure activity, I have seen and examined the patient along with his nurse, he is alert and fully oriented, doing fine, no seizure activity. But earlier today, he reported a pressure feeling in the chest and requested Ativan concerning seizure was coming up Again we have discussed about his new onset seizure with no of the reasons, unremarkable CT/MRI brain scan, EEG, we have also discussed about treatment option, and we decided no preventive seizure treatment. He is to follow up with his family doctor Urinalysis, 06/06/2025: Unremarkable UDS, 06/06/2025: Cannabinoids Plasma alcohol, 06/06/2025: Normal WBC/HB/PLT/MCV, 06/06/2025: 6/40.6/107/90 BMP, 06/06/2025: Unremarkable EEG, 06/08/2025: Normal CT head, 06/06/2025: No evidence of acute intracranial abnormality MRI brain, 06/07/2025, 1. No acute or recent infarct. 2. No acute abnormality. vital signs Vital Sign Date Time Temp Pulse Resp B/P (MAP) Pulse Ox O2 Delivery O2 Flow Rate FiO2 06/08/25 17:00 97.6 51 18 115/70 (85) 98 97.6 06/08/25 08:00 Room Air* 0 21 Total Intake and Output 06/07/25 06/07/25 06/08/25 15:00 23:00 07:00 Intake Total 30 ml 550 ml 340 ml Balance 30 ml 550 ml 340 ml medications Current Medications Medications Dose Ordered Sig/Rima Route Start Time Stop Time Status Last Admin Dose Admin Ondansetron HCl 4 mg Q4HP PRN IV 06/06/25 08:15 Lorazepam 1 mg Q5MINP PRN IV 06/06/25 10:30 06/08/25 18:17 1 MG Levothyroxine Sodium 100 mcg QAM@0600 PO 06/06/25 10:57 06/08/25 05:21 100 MCG Levetiracetam 100 ml @ 400 mls/hr BID IV 06/06/25 10:56 06/08/25 10:18 400 MLS/HR Lorazepam 1 mg ONCE PRN IV 06/06/25 19:15 06/11/25 19:14 Acetaminophen 650 mg Q6H PRN PO 06/07/25 05:15 06/08/25 04:23 650 MG objective General: the patient is well developed and nourished. No acute distress. HEENT: Normocephalic, neck is supple, no carotid bruits. No mass. MENTAL STATUS: Subjective SPEECH, LANGUAGE, HIGHER CORTICAL FUNCTION: no aphasia or dysathria. CRANIAL NERVES: Pupils are equal, round and reactive. EOMs full and conjugate. No nystagmus. Facial sensation intact in all three divisions bilaterally. Mandibular strength intact. Facial muscles symmetrical and strength intact. Tongue midline. No fasciculations or atrophy. SENSATION: Sensation to touch and pinprick is normal. MOTOR: Normal tone in the upper and lower extremity. Normal muscle bulk. No fasciculations. No abnormal movements or posturing. Muscle strength of the major groups in the extremities is 5/5. REFLEXES: Deep tendon reflexes normal and symmetrical. No pathological reflexes. CEREBELLAR/COORDINATION: Finger to nose is normal bilaterally. GAIT/STATION: deferred laboratory and microbiology Laboratory Tests 06/07/25 06:43 Test 06/07/25 06:43 Range/Units Serum Glucose 90 74-106 mg/dL Problem List New onset seizure Grand mal seizure Status epilepticus Assessment/Plan Monitoring Supportive treatment Telemetry Ativan for seizure breakthrough D/C Daiana He has been advised not drive and he is cleared DMV report in the chart More recommendation per clinical course This medical document was created using an electronic medical record system with QRuso dictation system. Although this document has been carefully reviewed, there may still be some phonetic and typographical errors. These areas are purely typographical due to imperfections of the software programs, and do not reflect any compromise in the patient's medical care. Prognosis poor Plan discussed with: Patient, Other DANN MCADAMS MD Jun 08, 2025 21:49
[2025-06-09 01:00] VITALS: BP 114/58; PULSE 48; RESP 18; TEMP 97.8; O2SAT 96
[2025-06-09 05:00] VITALS: BP 138/69; PULSE 52; RESP 20; TEMP 98; O2SAT 97
[2025-06-09 08:42] VITALS: BP 105/75; PULSE 59; RESP 18; TEMP 96.8; O2SAT 98
--- NOTE | 2025-06-09 12:28 | DVHDS2 ---
Discharge Summary Date of Admission Jun 06, 2025 at 08:18 Date of Discharge: Jun 09, 2025 Admitting Diagnosis Seizures Wounds: None Labs/Diagnostic Data: Laboratory Results Test 06/07/25 06:43 06/06/25 08:04 06/06/25 07:59 White Blood Count 3.3 10^3/uL (4.4-10.8) Red Blood Count 4.45 10^6/uL (4.5-5.90) Hemoglobin 14.0 g/dL (13.5-17.5) Hematocrit 40.0 % (41.0-53.0) Mean Corpuscular Volume 90.0 fL (80.0-100.0) Mean Corpuscular Hemoglobin 31.6 pg (28.0-32.0) Mean Corpuscular Hemoglobin Concent 35.1 g/dL (32.0-36.0) Red Cell Distribution Width 13.9 % (11.8-14.3) Platelet Count 92 10^3/uL (140-450) Mean Platelet Volume 9.8 fL (6.9-10.8) Neutrophils (%) (Auto) 69.9 % (37.0-80.0) Lymphocytes (%) (Auto) 20.3 % (10.0-50.0) Monocytes (%) (Auto) 7.9 % (0.0-12.0) Eosinophils (%) (Auto) 1.2 % (0.0-7.0) Basophils (%) (Auto) 0.7 % (0.0-2.0) Neutrophils # (Auto) 2.3 10 ^3/uL (1.6-8.6) Lymphocytes # (Auto) 0.7 10 ^3/uL (0.4-5.4) Monocytes # (Auto) 0.3 10 ^3/uL (0-1.3) Eosinophils # (Auto) 0 10 ^3/uL (0-0.8) Basophils # (Auto) 0 10 ^3/uL (0-0.2) Nucleated Red Blood Cells 0.2 % Sodium Level 142 mmol/L (136-145) Potassium Level 3.8 mmol/L (3.5-5.1) Chloride Level 109 mmol/L (98-107) Carbon Dioxide Level 26 mmol/L (20-31) Anion Gap 7 (5-15) Blood Urea Nitrogen 11 mg/dL (9-23) Creatinine 0.92 mg/dL (0.700-1.30) Glomerular Filtration Rate Calc 103 mL/min (>90) BUN/Creatinine Ratio 12.0 (10.0-20.0) Serum Glucose 90 mg/dL (74-106) Calcium Level 8.8 mg/dL (8.7-10.4) Total Bilirubin 1.0 mg/dL (0.2-1.0) Aspartate Amino Transferase (AST) 18 U/L (13-40) Alanine Aminotransferase (ALT) 16 U/L (7-40) Alkaline Phosphatase 63 U/L (46-116) Total Protein 6.2 g/dL (5.7-8.2) Albumin 4.0 g/dL (3.2-4.8) Plasma/Serum Blood Alcohol < 3.0 mg/dL (<10) Urine Color Yellow (Yellow) Urine Clarity Clear (Clear) Urine pH 6.5 (5.0-9.0) Urine Specific Harris 1.028 (1.001-1.035) Urine Protein Trace (Negative) Urine Ketones Trace (Negative) Urine Blood Negative /uL (Negative) Urine Nitrite Negative (Negative) Urine Bilirubin Negative (Negative) Urine Urobilinogen Normal mg/dL (Negative) Urine Leukocyte Esterase Negative /uL (Negative) Urine RBC 1 /hpf (0 - 3) Urine Microscopic WBC 2 /HPF (0-3) Urine Squamous Epithelial Cells Few /hpf (<5) Urine Calcium Oxalate Crystals Few (None Seen) Urine Bacteria None seen /hpf (None Seen) Urine Hyaline Casts Few /lpf (0 - 2) Urine Mucus Few (None Seen) Urine Glucose Normal mg/dL (Normal) Urine Opiates Screen Neg (NEGATIVE) Urine Fentanyl Screen Neg (NEGATIVE) Urine Barbiturates Screen Neg (NEGATIVE) Urine Phencyclidine Screen Neg (NEGATIVE) Urine Amphetamines Screen Neg (NEGATIVE) Urine Benzodiazepines Screen Neg (NEGATIVE) Urine Cocaine Screen Neg (NEGATIVE) Urine Cannabinoids Screen Pos (NEGATIVE) Other Laboratory Tests 06/07/25 06:43 Brief Hx & Hospital Course: 50-year-old male with no previous medical history admitted for new onset seizures seen by Neurology Dr. Painter who felt the patient had grand mal seizures with a status epilepticus treated with the Keppra and Ativan p.r.n. CT head was negative urine drug screen was negative. Cleared for discharge by Neurology patient did not have any seizures after admission. Neurology recommended not to continue Keppra at the time of discharge. Discharged home. he will follow up with neurology in one week patient is alert awake oriented x3 at the time of discharge without any discharge and with stable vital signs Consults/Reason for consult Neurology Dr. Alves Operations or Procedures CT head without contrast Condition at Discharge: Fair Final Diagnosis/Problems List New onset seizure: Seen by Neurology Dr. Alves placed on Keppra and Ativan p.r.n. discontinued Keppra at the time of discharge Grand mal seizure Status epilepticus CT head negative Urine drug screen negative except for marijuana Discharge Disposition: Home Discharge Instruct/Medications Diet: Regular Activity: See Comment Activity comment: Not to drive until cleared by Neurologist Follow Up/Referral: Follow up with the Neurology Dr. Alves in one week Medications: None Scheduled Levothyroxine Sodium (Levothyroxine Sodium), 10 MCG PO QAM, (Reported) 39 (Time taken for discharge summary 39 minutes) Discharge Statement: "Patient was advised to return to the ER or call 911 if any headaches, dizziness, shortness of breath, chest pain, abdominal pain, bleeding, fevers, or worsening of medical condition. Patient was counseled about treatment plan, medications, possible side effects, patientverbalized understanding. All questions were answered to the best of my ability. This discharge took greater then 30 minutes in planning, reviewing documentation, counseling the patient, and discussing with other team members." ASSESSMENT ASSESSMENT Hospital Course Improved Assessment New onset seizure: Seen by Neurology Dr. Alves placed on Keppra and Ativan p.r.n. discontinued Keppra at the time of discharge Grand mal seizure Status epilepticus CT head negative Urine drug screen negative except for marijuana Date of Service: Jun 09, 2025 Billing Provider: MITCHELL KLEIN MD Common Visit Codes: 57805-QZT/OBS DISCH DAY >30min MITCHELL KLEIN MD Jun 09, 2025 12:28
[2025-06-09 13:00] VITALS: BP 98/63; PULSE 49; RESP 18; TEMP 96.4; O2SAT 99
== END 2025-06-09 14:10 | disposition home or self-care (01) | DRG 53 ==
LOC: EDBD 06:27 → EDUNIT# 06:27 → ER 06:27 → OVERFLOW 08:18 → EAST 17:14 → TELE-EAST 06-08 22:48
PROVIDERS: ADMIT Family Medicine; ATTEND Family Medicine
DX: G40.401 Other generalized epilepsy and epileptic syndromes, not intractable, with status epilepticus (principal); E03.9 Hypothyroidism, unspecified; Z96.642 Presence of left artificial hip joint; Z96.651 Presence of right artificial knee joint; F12.90 Cannabis use, unspecified, uncomplicated; F17.200 Nicotine dependence, unspecified, uncomplicated; Z87.442 Personal history of urinary calculi; Z71.51 Drug abuse counseling and surveillance of drug abuser
CPT/HCPCS: 36415; 70450; 70551; 80048; 80053; 80307; 80320; 81001; 85025; 95819; 99291; G0378

== ENCOUNTER 2025-07-13 07:37 | Inpatient (IN) | payer MEDICAID ==
[~2025-07-13] VITALS: Ht 172.7 cm; Wt 73.1 kg
--- NOTE | 2025-07-13 08:42 | ED.PDOC ---
History of Present Illness HPI Comments 50-year-old male ROBERTA with prior medical history of arthritis, kidney stones, thyroid and the chief complaint of abdominal pain. Patient reports on having had a sudden onset of right-sided abdominal pain which started this morning associated with pain which radiated to the back and nausea and vomiting. Frida man notes on having similar symptoms in the past due from having an enlarged spleen. Denies any other symptoms at this time. Denies chills, fever, /D, SOB, CP. No other associated symptoms, modifiers, recent injuries or sick contacts present at this time. Chief Complaint: Abdominal Pain Time Seen by MD: 08:40 Primary Care Provider: FERNY Terrell Notes: Nurses Notes, Medications, Allergies Allergies: Coded Allergies: NO KNOWN ALLERGIES (Unverified , 02/02/16) Home Meds Reported Medications Levothyroxine Sodium (Levothyroxine Sodium) 25 Mcg Tab, 10 MCG PO QAM, MCG 02/02/16 Information Source: Patient Mode of Arrival: EMS Severity: Moderate Timing: Hours Duration: Since onset, Hours Prehospital treatment: None Past Medical History PAST MEDICAL HISTORY: Arthritis, Kidney Stones, Thyroid Past Medical History (Other): Enlarged spleen Surgical History: Denies all surgeries Family History Family History: Reviewed,noncontributory to illness, Unknown Social History Smoker: Non-Smoker Alcohol: Denies ETOH Use Drugs: Denies Drug Use Lives In: Home Constitutional: denies: chills, diaphoresis, fatigue, fever, malaise, sweats, weakness, others EENTM: denies: blurred vision, double vision, ear bleeding, ear discharge, ear drainage, ear pain, ear ringing, eye pain, eye redness, hearing loss, mouth pain, mouth swelling, nasal discharge, nose bleeding, nose congestion, nose pain, photophobia, tearing, throat pain, throat swelling, voice changes, others Respiratory: denies: cough, hemoptysis, orthopnea, SOB at rest, shortness of breath, SOB with excertion, stridor, wheezing, others Cardiovascular: denies: chest pain, dizzy spells, diaphoresis, Dyspnea on exertion, edema, irregular heart beat, left arm pain, lightheadedness, palpitations, PND, syncope, others Gastrointestinal: reports: abdominal pain, nausea, vomiting; denies: abdomen distended, blood streaked bowels, constipated, diarrhea, dysphagia, difficulty swallowing, hematemesis, melena, poor appetite, poor fluid intake, rectal bleeding, rectal pain, others Genitourinary: denies: burning, dysuria, flank pain, frequency, hematuria, incontinence, penile discharge, penile sore, pain, testicle pain, testicle swelling, urgency, others Neurological: denies: dizziness, fainting, headache, left sided numbness, left sided weakness, numbness, paresthesia, pre-existing deficit, right sided numbness, right sided weakness, seizure, speech problems, tingling, tremors, weakness, others Musculoskeletal: reports: back pain; denies: gout, joint pain, joint swelling, muscle pain, muscle stiffness, neck pain, others Integumetry: denies: bruises, change in color, change in hair/nails, dryness, laceration, lesions, lumps, rash, wounds, others Allergic/Immunocompromised: denies: Difficulty Healing, Frequent Infections, Hives, Itching, others Hematologic/Lymphatic: denies: anemia, blood clots, easy bleeding, easy bruising, swollen glands, others Endocrine: denies: excessive hunger, excessive sweating, excessive thirst, excessive urination, flushing, intolerance to cold, intolerance to heat, unexplained weight gain, unexplained weight loss, others Psychiatric: denies: anxiety, bipolar disorder, depression, hopeless, panic disorder, schizophrenia, sleepless, suicidal, others All Other Systems: Reviewed and Negative Physical Exam Exam Comments Diffuse abdominal tenderness General Appearance: No Apparent Distress, Normal HEENT: Normal ENT Inspection, Pharynx Normal, TMs Normal Neck: Full Range of Motion, Non-Tender, Normal, Normal Inspection Respiratory: Chest Non-Tender, Lungs Clear, No Accessory Muscle Use, No Respiratory Distress, Normal Breath Sounds Cardiovascular: No Edema, No JVD, No Murmur, No Gallop, Normal Peripheral Pulses, Regular Rate/Rhythm Breast Exam: Deferred Gastrointestinal: No Organomegaly, Non Tender, No Pulsatile Mass, Normal Bowel Sounds, Soft Genitalia: Deferred Pelvic: Deferred Rectal: Deferred Extremities: No calf tenderness, Normal capillary refill, Normal inspection, Normal range of motion, Non-tender, No pedal edema Musculoskeletal : Apperance: Normal Neurologic: Alert, ship liner II-XII nml as Tested, No Motor Deficits, Normal Affect, Normal Mood, No Sensory Deficits Cerebellar Function: Normal Reflexes: Normal Skin: Dry, Normal Color, Warm Lymphatic: No Adenopathy Was a procedure done? Was a procedure done?: No Differential Dx Considerations may include: Acute cystitis, pyelonephritis, renal colic, acute appendicitis X-Ray, Labs, Meds, VS Vital Signs Date Time Temp Pulse Resp B/P (MAP) Pulse Ox O2 Delivery O2 Flow Rate FiO2 07/13/25 10:57 97.5 63 18 114/68 (83) 100 97.5 07/13/25 09:32 70 18 128/60 07/13/25 09:02 78 12 139/70 07/13/25 08:20 70 16 100 Room Air 07/13/25 08:20 97.7 70 16 130/90 (103) 100 97.7 07/13/25 07:49 98.1 64 18 130/98 99 98.1 Lab Test 07/13/25 09:54 07/13/25 08:39 Range/Units White Blood Count 6.8 4.4-10.8 10^3/uL Red Blood Count 5.28 4.5-5.90 10^6/uL Hemoglobin 16.7 13.5-17.5 g/dL Hematocrit 48.6 41.0-53.0 % Mean Corpuscular Volume 92.1 80.0-100.0 fL Mean Corpuscular Hemoglobin 31.7 28.0-32.0 pg Mean Corpuscular Hemoglobin Concent 34.4 32.0-36.0 g/dL Red Cell Distribution Width 14.3 11.8-14.3 % Platelet Count 100 L 140-450 10^3/uL Mean Platelet Volume 9.9 6.9-10.8 fL Neutrophils (%) (Auto) 89.7 H 37.0-80.0 % Lymphocytes (%) (Auto) 4.4 L 10.0-50.0 % Monocytes (%) (Auto) 5.4 0.0-12.0 % Eosinophils (%) (Auto) 0.2 0.0-7.0 % Basophils (%) (Auto) 0.3 0.0-2.0 % Neutrophils # (Auto) 6.1 1.6-8.6 10 ^3/uL Lymphocytes # (Auto) 0.3 L 0.4-5.4 10 ^3/uL Monocytes # (Auto) 0.4 0-1.3 10 ^3/uL Eosinophils # (Auto) 0 0-0.8 10 ^3/uL Basophils # (Auto) 0 0-0.2 10 ^3/uL Nucleated Red Blood Cells 0.1 % Sodium Level 142 136-145 mmol/L Potassium Level 4.1 3.5-5.1 mmol/L Chloride Level 109 H 98-107 mmol/L Carbon Dioxide Level 23 20-31 mmol/L Anion Gap 10 5-15 Blood Urea Nitrogen 11 9-23 mg/dL Creatinine 1.34 H 0.700-1.30 mg/dL Glomerular Filtration Rate Calc 65 >90 mL/min BUN/Creatinine Ratio 8.2 L 10.0-20.0 Serum Glucose 107 H 74-106 mg/dL Lactic Acid Level 2.2 *H 0.4-2.0 mmol/L Calcium Level 10.1 8.7-10.4 mg/dL Total Bilirubin 1.4 H 0.2-1.0 mg/dL Aspartate Amino Transferase (AST) 24 13-40 U/L Alanine Aminotransferase (ALT) 25 7-40 U/L Alkaline Phosphatase 89 46-116 U/L Total Protein 7.7 5.7-8.2 g/dL Albumin 4.9 H 3.2-4.8 g/dL Lipase 137 H 12-53 U/L Urine Color Yellow Yellow Urine Clarity Clear Clear Urine pH 8.0 5.0-9.0 Urine Specific Teller > 1.030 1.001-1.035 Urine Protein 1+ H Negative Urine Ketones 2+ H Negative Urine Blood 2+ H Negative /uL Urine Nitrite Negative Negative Urine Bilirubin Negative Negative Urine Urobilinogen Normal Negative mg/dL Urine Leukocyte Esterase Negative Negative /uL Urine RBC 237 0 - 3 /hpf Urine Microscopic WBC 1 0-3 /HPF Urine Squamous Epithelial Cells Few <5 /hpf Urine Bacteria Few H None Seen /hpf Urine Glucose Normal Normal mg/dL Current Medications Medications (Trade) Dose Ordered Sig/Irma Route Start Time Stop Time Status Last Admin Sodium Chloride 1,000 ml @ 1,000 mls/hr Q1H ONCE IV 07/13/25 08:45 07/13/25 09:44 DC 07/13/25 09:02 Ondansetron HCl (Zofran) 4 mg ONCE ONCE IV 07/13/25 08:45 07/13/25 08:46 DC 07/13/25 09:02 Morphine Sulfate 4 mg ONCE ONCE IV 07/13/25 08:45 07/13/25 08:46 DC 07/13/25 09:02 Pantoprazole Sodium (Protonix) 40 mg ONCE ONCE IV 07/13/25 08:45 07/13/25 08:46 DC 07/13/25 09:02 Time of 1ST Reevaluation: 09:10 Reevaluation 1ST: Unchanged Patient Education/Counseling: Diagnosis, Treatment, Prognosis Family Education/Counseling: No Family Present SEPSIS Sepsis Screen Date sepsis recognized/suspect: Jul 13, 2025 Time Sepsis recognized/suspect: 750 Recent Procedure: No On Antibiotic Therapy: No Respiratory Rate >20: No Heart Rate >90: No Temp<36 C (96.8 F) or >38.3 C: No SBP <90 or MAP <65 mmHG: No New Acute Mental Status Change: No Is the patient on CPAP, BIPAP,: No Physician Orders Ct Ab Pel With Iv Con Only (07/13/25 08:33) Blood Culture (07/13/25 08:33) Vital Signs Date Time Temp Pulse Resp B/P (MAP) Pulse Ox O2 Delivery O2 Flow Rate FiO2 07/13/25 10:57 97.5 63 18 114/68 (83) 100 97.5 07/13/25 09:32 70 18 128/60 07/13/25 09:02 78 12 139/70 07/13/25 08:20 70 16 100 Room Air 07/13/25 08:20 97.7 70 16 130/90 (103) 100 97.7 07/13/25 07:49 98.1 64 18 130/98 99 98.1 Laboratory Tests Test 07/13/25 09:54 Lactic Acid Level 2.2 mmol/L (0.4-2.0) *H White Blood Count 6.8 10^3/uL (4.4-10.8) Medications Medications Dose Ordered Sig/Irma Route Start Time Stop Time Status Last Admin Dose Admin Morphine Sulfate 4 mg ONCE ONCE IV 07/13/25 08:45 07/13/25 08:46 DC 07/13/25 09:02 Ondansetron HCl 4 mg ONCE ONCE IV 07/13/25 08:45 07/13/25 08:46 DC 07/13/25 09:02 Pantoprazole Sodium 40 mg ONCE ONCE IV 07/13/25 08:45 07/13/25 08:46 DC 07/13/25 09:02 Sodium Chloride 1,000 ml @ 1,000 mls/hr Q1H ONCE IV 07/13/25 08:45 07/13/25 09:44 DC 07/13/25 09:02 Departure 1 Departure Time of Disposition: 11:46 (Patient presented with abdominal pain that was concerning for possible appendicits, gastritis, cholecystitis, colitis, gastroenteritis, sbo, or orther possible surgical emergency. Data: 1. I ordered and reviewed the result of at least 3 labs including a CBC, BMP, and Urinalysis. 2. I independently interpreted the following tests: CT Abdomen and Pelvis is concerning for ureteral colic he had hydronephrosis .Risk:This patient has a high risk of morbidity due to further diagnostic testing or treatment and may suffer from an acute abdominal process disorder. Workup reveals intractable ab dominal pain and ureteral colic and patient should be admitted for further workup. and possible expert consultation. ) Impression: Primary Impression: Intractable abdominal pain Additional Impressions: Ureteral colic Hydronephrosis Disposition: ADMITTED INPATIENT Admit to: Tele Condition: Guarded Critical Care Note Critical Care Time?: Yes Critical care comment: Intractable abdominal pain Authorized and Performed by: Nimco Waddell MD Total critical care time: Approximately 38 minutes Due to a high probability of clinically significant, life threatening deterioration, the patient required my highest level of preparedness to intervene emergently and I personally spent this critical care time directly and personally managing the patient. This critical care time included obtaining a history; examining the patient; pulse oximetry; ordering and review of studies; arranging urgent treatment with development of a management plan; evaluation of patient's response to treatment; frequent reassessment; and, discussions with other providers. This critical care time was performed to assess and manage the high probability of imminent, life-threatening deterioration that could result in multi-organ failure. It was exclusive of separately billable procedures and treating other patients and teaching time. Please see my other sections and the rest of the note for further information on patient assessment and treatment. Stability Stability form required: No I personally scribed for NIMCO WADDELL MD ([email or web address]) on 07/13/25 at 08:42. Electronically submitted by Scooter Riojas ([email or web address]). NIMCO WADDELL MD Jul 13, 2025 08:42
[2025-07-13] MEDS: PANTOPRAZOLE 40 MG/10 ML VIAL INJ IV ONE (09:02)
[2025-07-13] MEDS: ONDANSETRON HCL 4 MG/2 ML VIAL IV ONE (09:02)
[2025-07-13] MEDS: MORPHINE SULFATE 4 MG/ML SYR/VIAL IV ONE (09:02)
[2025-07-13] MEDS: SODIUM CHLORIDE 0.9% 1,000 ML IV ONE (09:02)
[2025-07-13] MEDS: IOHEXOL 300 MG/ML 100ML BOTTLE IJ ONE (09:09)
--- NOTE | 2025-07-13 09:38 | DVH ---
CLINICAL INFORMATION: abdominal pain. TECHNIQUE: Axial CT images of the abdomen and pelvis were obtained after the uneventful administration of 100 mL Omnipaque 300 IV contrast. Coronal and sagittal reformatted images were obtained, reviewed, and stored. All CT scans at this medical facility are performed using dose modulation techniques as appropriate to a performed exam including the following: Automated exposure control was utilized; adjustment of the MA and/or KV according to patient size; and use of iterative reconstruction technique. CTDIvol = 6.37 mGy DLP = 410.45 mGy-cm COMPARISON: None FINDINGS: Motion limited study. Lung bases: Lung bases are clear. Liver: Hepatic steatosis. Biliary: Cholecystectomy. Spleen: Splenic varices, gastric varices and additional varices in the upper abdomen. Pancreas: Grossly unremarkable given the limitations of the exam. Adrenal glands: Grossly unremarkable. Kidneys: The moderate right hydronephrosis and hydroureter with suspected obstructing 3.5 mm calculus in the proximal right ureter, although portions of the course of the ureter are obscured by motion artifact, and correlation with clinical findings is needed. Aorta/Vascular: No aneurysm or significant calcification. Lymph Nodes: No mass or lymphadenopathy. Bowel/mesentery: No small bowel obstruction. No free air or free fluid. Appendix is visualized and appears grossly unremarkable. Moderate stool in the colon. Pelvic organs: Grossly unremarkable. Bladder: Underdistended and not well evaluated. Abdominal wall: No mass or hernia. Bones: No acute fracture or focal intraosseous lesion. IMPRESSION: 1. Motion limited study. 2. [id number] right hydronephrosis with suspected obstructing 3.5 mm calculus in the proximal right ureter, although portions of the right ureter are obscured by motion artifact. Correlation with clinical findings is needed. 3. Upper abdominal varices. 4. Hepatic steatosis. 5. Additional findings as described above.
[2025-07-13 10:20] LABS: Hematocrit 48.6 % (41.0-53.0); Hemoglobin 16.7 g/dL (13.5-17.5); Mean Corpuscular Hemoglobin 31.7 pg (28.0-32.0); Mean Corpuscular Volume 92.1 fL (80.0-100.0); Nucleated Red Blood Cells % 0.1 %
[2025-07-13 10:55] LABS: Alanine Aminotransferase 25 U/L (7-40); Alkaline Phosphatase 89 U/L (46-116); Anion Gap 10 (5-15); BUN/Creatinine Ratio 8.2 (10.0-20.0); Blood Urea Nitrogen 11 mg/dL (9-23); Calcium 10.1 mg/dL (8.7-10.4); Carbon Dioxide 23 mmol/L (20-31); Potassium 4.1 mmol/L (3.5-5.1); Sodium 142 mmol/L (136-145); Total Protein 7.7 g/dL (5.7-8.2)
[2025-07-13 10:57] LABS: Albumin 4.9 g/dL (3.2-4.8); Bilirubin, Total 1.4 mg/dL (0.2-1.0); Chloride 109 mmol/L (98-107); Glucose 107 mg/dL (74-106)
[2025-07-13 10:59] LABS: Lactic Acid w/Reflex 2.2 mmol/L (0.4-2.0)
[2025-07-13 11:12] LABS: Lipase 137 U/L (12-53)
[2025-07-13 11:33] LABS: Urine Protein, UAD 1+ (Negative)
--- NOTE | 2025-07-13 12:32 | DVHHP2 ---
History of Present Illness Reason for Visit: Abdominal pain History of Present Illness This patient is a 50-year-old male who presents to the ED with acute onset right flank and abdominal pain starting early this morning. Pain is associated with nausea and vomiting. He has history of right kidney stones and an enlarged spleen and reports that the current symptoms are similar to prior kidney stones episode. He denies fever, hematemesis, diarrhea, constipation, or melena. CT abdomen/pelvis demonstrates mild to moderate right hydronephrosis with suspected obstructing 3.5 mm calculus, upper abdominal varices, and hepatic steatosis. Laboratory shows lactic acid 2.2 mm all/L, lipase 137 you/L, creatinine 1.34 mg/dL. Urinalysis reveals proteinuria, hematuria, and proteinuria. Past medical history includes seizures, hypothyroidism, and nitrites. Past Medical History As stated in HPI Past Surgical History Denies Family History Reviewed, non-contributory to the management of this case. Past Social History The patient lives at home, denies smoking, alcohol or illicit drugs abuse. Review of Systems Constitutional: Yes: Malaise; No: Fever, Chills, Sweats, Weakness, Other Eyes: No: Pain, Vision change, Conjunctivae inflammation, Eyelid inflammation, Other, Redness ENT: No: Ear pain, Ear discharge, Nose pain, Nose discharge, Nose congestion, Mouth pain, Mouth swelling, Throat pain, Throat swelling, Other Respiratory: No: Cough, Dry, Shortness of breath, SOB with excertion, Wheezing, Hemoptysis, Pleuritic Pain, Sputum, Wheezing, Other Cardiovascular: No: Chest Pain, Palpitations, Orthopnea, Paroxysmal Noc. Dyspnea, Edema, Lt Headedness, Other Gastrointestinal: Nausea, Vomiting, Abdominal Pain, Other (Right flank pain); No: Diarrhea, Constipation, Melena, Hematochezia Genitourinary: No Dysuria, No Frequency, No Incontinence; Hematuria; No Retention, No Other Musculoskeletal: No: other, neck pain, shoulder pain, arm pain, back pain, hand pain, leg pain, foot pain Skin: No: Rash, Lesions, Jaundice, Bruising, Other Neurological: No: Weakness, Numbness, Incoordination, Change in speech, Confusion, Seizures, Other Allergies: Coded Allergies: NO KNOWN ALLERGIES (Unverified , 02/02/16) Exam Vital Signs Vital Signs Date Time Temp Pulse Resp B/P (MAP) Pulse Ox O2 Delivery O2 Flow Rate FiO2 07/13/25 10:57 97.5 63 18 114/68 (83) 100 97.5 07/13/25 08:20 Room Air General Appearance: Alert, Oriented X3, Cooperative, mild distress HEENT: Atraumatic, PERRLA, EOMI Respiratory: Clear to auscultation, Normal air movement Cardiovascular: Regular rate, Normal S1, Normal S2 Abdominal: Normal bowel sounds, Soft, No tenderness, Other (Right CVA tenderness) Extremities: No clubbing, No cyanosis, No edema, Normal pulses Skin: No rashes, No breakdown Neuro: Normal gait, Normal speech Psych/Mental Status: Mental status NL Labs/Xrays Labs Test 07/13/25 09:54 07/13/25 08:39 Range/Units White Blood Count 6.8 4.4-10.8 10^3/uL Red Blood Count 5.28 4.5-5.90 10^6/uL Hemoglobin 16.7 13.5-17.5 g/dL Hematocrit 48.6 41.0-53.0 % Mean Corpuscular Volume 92.1 80.0-100.0 fL Mean Corpuscular Hemoglobin 31.7 28.0-32.0 pg Mean Corpuscular Hemoglobin Concent 34.4 32.0-36.0 g/dL Red Cell Distribution Width 14.3 11.8-14.3 % Platelet Count 100 L 140-450 10^3/uL Mean Platelet Volume 9.9 6.9-10.8 fL Neutrophils (%) (Auto) 89.7 H 37.0-80.0 % Lymphocytes (%) (Auto) 4.4 L 10.0-50.0 % Monocytes (%) (Auto) 5.4 0.0-12.0 % Eosinophils (%) (Auto) 0.2 0.0-7.0 % Basophils (%) (Auto) 0.3 0.0-2.0 % Neutrophils # (Auto) 6.1 1.6-8.6 10 ^3/uL Lymphocytes # (Auto) 0.3 L 0.4-5.4 10 ^3/uL Monocytes # (Auto) 0.4 0-1.3 10 ^3/uL Eosinophils # (Auto) 0 0-0.8 10 ^3/uL Basophils # (Auto) 0 0-0.2 10 ^3/uL Nucleated Red Blood Cells 0.1 % Sodium Level 142 136-145 mmol/L Potassium Level 4.1 3.5-5.1 mmol/L Chloride Level 109 H 98-107 mmol/L Carbon Dioxide Level 23 20-31 mmol/L Anion Gap 10 5-15 Blood Urea Nitrogen 11 9-23 mg/dL Creatinine 1.34 H 0.700-1.30 mg/dL Glomerular Filtration Rate Calc 65 >90 mL/min BUN/Creatinine Ratio 8.2 L 10.0-20.0 Serum Glucose 107 H 74-106 mg/dL Lactic Acid Level 2.2 *H 0.4-2.0 mmol/L Calcium Level 10.1 8.7-10.4 mg/dL Total Bilirubin 1.4 H 0.2-1.0 mg/dL Aspartate Amino Transferase (AST) 24 13-40 U/L Alanine Aminotransferase (ALT) 25 7-40 U/L Alkaline Phosphatase 89 46-116 U/L Total Protein 7.7 5.7-8.2 g/dL Albumin 4.9 H 3.2-4.8 g/dL Lipase 137 H 12-53 U/L Urine Color Yellow Yellow Urine Clarity Clear Clear Urine pH 8.0 5.0-9.0 Urine Specific [place] > 1.030 1.001-1.035 Urine Protein 1+ H Negative Urine Ketones 2+ H Negative Urine Blood 2+ H Negative /uL Urine Nitrite Negative Negative Urine Bilirubin Negative Negative Urine Urobilinogen Normal Negative mg/dL Urine Leukocyte Esterase Negative Negative /uL Urine RBC 237 0 - 3 /hpf Urine Microscopic WBC 1 0-3 /HPF Urine Squamous Epithelial Cells Few <5 /hpf Urine Bacteria Few H None Seen /hpf Urine Glucose Normal Normal mg/dL PROCEDURE(s): ABPLIV - CT AB PEL WITH IV CON ONLY REASON: abdominal pain ORDER NUMBER(s): [id number], ACCESSION NUMBER(s): [id number] CLINICAL INFORMATION: abdominal pain. TECHNIQUE: Axial CT images of the abdomen and pelvis were obtained after the uneventful administration of 100 mL Omnipaque 300 IV contrast. Coronal and sagittal reformatted images were obtained, reviewed, and stored. All CT scans at this medical facility are performed using dose modulation techniques as appropriate to a performed exam including the following: Automated exposure control was utilized; adjustment of the MA and/or KV according to patient size; and use of iterative reconstruction technique. CTDIvol = 6.37 mGy DLP = 410.45 mGy-cm COMPARISON: None FINDINGS: Motion limited study. Lung bases: Lung bases are clear. Liver: Hepatic steatosis. Biliary: Cholecystectomy. Spleen: Splenic varices, gastric varices and additional varices in the upper abdomen. Pancreas: Grossly unremarkable given the limitations of the exam. Adrenal glands: Grossly unremarkable. Kidneys: The moderate right hydronephrosis and hydroureter with suspected obstructing 3.5 mm calculus in the proximal right ureter, although portions of the course of the ureter are obscured by motion artifact, and correlation with clinical findings is needed. Aorta/Vascular: No aneurysm or significant calcification. Lymph Nodes: No mass or lymphadenopathy. Bowel/mesentery: No small bowel obstruction. No free air or free fluid. Appendix is visualized and appears grossly unremarkable. Moderate stool in the colon. Pelvic organs: Grossly unremarkable. Bladder: Underdistended and not well evaluated. Abdominal wall: No mass or hernia. Bones: No acute fracture or focal intraosseous lesion. IMPRESSION: 1. Motion limited study. 2. Iqex-yo-wevgemgd right hydronephrosis with suspected obstructing 3.5 mm calculus in the proximal right ureter, although portions of the right ureter are obscured by motion artifact. Correlation with clinical findings is needed. 3. Upper abdominal varices. 4. Hepatic steatosis. 5. Additional findings as described above. SEPSIS Sepsis Screen Date sepsis recognized/suspect: Jul 13, 2025 Time Sepsis recognized/suspect: 1120 Recent Procedure: No On Antibiotic Therapy: No Respiratory Rate >20: No Heart Rate >90: No Temp<36 C (96.8 F) or >38.3 C: No SBP <90 or MAP <65 mmHG: No New Acute Mental Status Change: No Is the patient on CPAP, BIPAP,: No Physician Orders Ct Ab Pel With Iv Con Only (07/13/25 08:33) Blood Culture (07/13/25 08:33) * Urology Consult (07/13/25 11:43) Admit (07/13/25 12:26) Code Status (07/13/25 12:26) 0.9% Ns 1000 Ml (07/13/25 12:30) Hydrocodone-Acet 5/325mg Tab ([place] 5/32 (07/13/25 12:30) Ondansetron Hcl (Zofran) (07/13/25 12:30) Fall Risk Precautions In Place QSHIFT (07/13/25 12:26) Complete Blood Count (07/14/25 04:00) Comprehensive Metabolic Panel (07/14/25 04:00) Condition: Fair (07/13/25 12:26) Acetaminophen Tablet (Tylenol Tablet) (07/13/25 12:30) Clear Liq Diet (07/13/25 Lunch) Vital Signs Date Time Temp Pulse Resp B/P (MAP) Pulse Ox O2 Delivery O2 Flow Rate FiO2 07/13/25 10:57 97.5 63 18 114/68 (83) 100 97.5 07/13/25 09:32 70 18 128/60 07/13/25 09:02 78 12 139/70 07/13/25 08:20 70 16 100 Room Air 07/13/25 08:20 97.7 70 16 130/90 (103) 100 97.7 07/13/25 07:49 98.1 64 18 130/98 99 98.1 Laboratory Tests Test 07/13/25 09:54 Lactic Acid Level 2.2 mmol/L (0.4-2.0) *H White Blood Count 6.8 10^3/uL (4.4-10.8) Medications Medications Dose Ordered Sig/Irma Route Start Time Stop Time Status Last Admin Dose Admin Morphine Sulfate 4 mg ONCE ONCE IV 07/13/25 08:45 07/13/25 08:46 DC 07/13/25 09:02 4 MG Ondansetron HCl 4 mg ONCE ONCE IV 07/13/25 08:45 07/13/25 08:46 DC 07/13/25 09:02 4 MG Pantoprazole Sodium 40 mg ONCE ONCE IV 07/13/25 08:45 07/13/25 08:46 DC 07/13/25 09:02 40 MG Sodium Chloride 1,000 ml @ 1,000 mls/hr Q1H ONCE IV 07/13/25 08:45 07/13/25 09:44 DC 07/13/25 09:02 1,000 MLS/HR Assessment/Plan Assessment/Plan # Right flank pain Acute right-sided obstructing nephrolithiasis Admit to medical-surgical unit Urology consult Tamsulosin IV fluid Pain control Strain urine # mild acute kidney injury, likely prerenal from obstruction and vomiting IV fluid Monitor # mild elevated lipase Monitor # lactic acidosis, likely secondary to hypoperfusion/dehydration IV fluid Monitor # hepatic steatosis and upper abdominal varices Incidental findings Monitor # hypothyroidism Check for thyroid function # history of seizure Seizure precautions Medical plan discussed with patient Plan discussed with: Patient My Orders Orders - BROOKE CAI Procedure Category Date Status Time Admit ADMIT 07/13/25 Verified 12:26 Code Status CODE 07/13/25 Verified 12:26 0.9% Ns 1000 Ml PHA 07/13/25 Verified 12:30 Hydrocodone-Acet PHA 07/13/25 Verified 5/325mg Tab ([place] 12:30 Ondansetron Hcl PHA 07/13/25 Verified (Zofran) 12:30 Fall Risk Precautions RACHEL 07/13/[address] 12:26 Complete Blood Count LAB 07/14/25 Verified 04:00 Comprehensive LAB 07/14/25 Verified Metabolic Panel 04:00 Condition: Fair RACHEL 07/13/25 Verified 12:26 Acetaminophen Tablet PHA 07/13/25 Verified (Tylenol Tablet) 12:30 Clear Liq Diet DIET 07/13/25 Verified Lunch Date of Service: Jul 13, 2025 Billing Provider: BROOKE CAI Common Visit Codes: [id number] INP/OBS CARE (HIGH) BROOKE CAI Jul 13, 2025 12:32
[2025-07-13] MEDS: TAMSULOSIN HYDROCHLORIDE 0.4 MG CAP PO ONE (12:47)
[2025-07-13] MEDS: KETOROLAC TROMETH 30 MG/ML 1ML VIAL IV ONE (12:47)
[2025-07-13] MEDS: SODIUM CHLORIDE 0.9% 1,000 ML IV SCH (13:55)
[2025-07-13 16:30] VITALS: BP 114/70; PULSE 58; RESP 16; TEMP 98.6; O2SAT 99
[2025-07-13] MEDS: TAMSULOSIN HYDROCHLORIDE 0.4 MG CAP PO SCH (17:09)
[2025-07-13 19:30] VITALS: PULSE 68; RESP 17; O2SAT 96
[2025-07-13 21:00] VITALS: BP 105/59; PULSE 68; RESP 17; TEMP 98; O2SAT 98
[2025-07-14] VITALS (7 sets, daily range): BP systolic 102–134; BP diastolic 57–78; PULSE 61–90; RESP 16–18; TEMP 97.9–98.7; O2SAT 90–99
[2025-07-14] MEDS: HYDROcodone-ACET 5/325MG TAB PO PRN (00:39)
[2025-07-14] MEDS: MORPHINE SULFATE 4 MG/ML SYR/VIAL IV PRN (02:08)
[2025-07-14] MEDS: ONDANSETRON HCL 4 MG/2 ML VIAL IV PRN (02:44)
[2025-07-14] MEDS: KETOROLAC TROMETH 30 MG/ML 1ML VIAL IV ONE (03:28)
[2025-07-14 06:59] LABS: Hematocrit 38.5 % (41.0-53.0); Hemoglobin 13.3 g/dL (13.5-17.5); Mean Corpuscular Hemoglobin 31.7 pg (28.0-32.0); Mean Corpuscular Volume 91.3 fL (80.0-100.0); Nucleated Red Blood Cells % 0.1 %
[2025-07-14 07:16] LABS: Alanine Aminotransferase 17 U/L (7-40); Albumin 3.8 g/dL (3.2-4.8); Alkaline Phosphatase 64 U/L (46-116); Anion Gap 9 (5-15); BUN/Creatinine Ratio 14.9 (10.0-20.0); Blood Urea Nitrogen 21 mg/dL (9-23); Carbon Dioxide 24 mmol/L (20-31); Glucose 94 mg/dL (74-106); Potassium 4.0 mmol/L (3.5-5.1); Sodium 142 mmol/L (136-145); Total Protein 6.0 g/dL (5.7-8.2)
[2025-07-14 07:17] LABS: Bilirubin, Total 1.0 mg/dL (0.2-1.0)
[2025-07-14 07:22] LABS: Calcium 8.6 mg/dL (8.7-10.4); Chloride 109 mmol/L (98-107)
--- NOTE | 2025-07-14 10:40 | DVHPN2 ---
Progress Note Date Seen: Jul 14, 2025 Medical Necessity Reason Pt with a Central, PICC or Fol: No Subjective Patient reports: No new complaints Review of Systems: HEENT:Normal, CVS:Normal, RESPIRATORY:Normal, GI:Normal, :Normal, MSK:Normal, NEURO:Normal Objective vital signs Vital Sign Date Time Temp Pulse Resp B/P (MAP) Pulse Ox O2 Delivery O2 Flow Rate FiO2 07/14/25 09:02 98.2 83 17 118/78 (91) 99 98.2 07/14/25 08:00 Room Air* 0 21 Total Intake and Output 07/13/25 07/13/25 07/14/25 15:00 23:00 07:00 Intake Total 500 ml 360 ml Balance 500 ml 360 ml medications Current Medications Medications Dose Ordered Sig/Irma Route Start Time Stop Time Status Last Admin Dose Admin Sodium Chloride 1,000 ml @ 100 mls/hr Q10H IV 07/13/25 12:30 07/14/25 10:15 100 MLS/HR Acetaminophen/ Hydrocodone Bitart 1 tab Q4HP PRN PO 07/13/25 12:30 07/14/25 00:39 1 TAB Ondansetron HCl 4 mg Q4HP PRN IV 07/13/25 12:30 07/14/25 02:44 4 MG Acetaminophen 650 mg Q6HP PRN PO 07/13/25 12:30 Morphine Sulfate 2 mg Q4HPRN PRN IV 07/13/25 12:45 07/14/25 02:08 2 MG Tamsulosin HCl 0.4 mg QPM PO 07/13/25 18:00 07/13/25 17:09 0.4 MG Examination: GENERAL:Normal, HEENT:Normal, NECK:Normal, LUNGS:Normal, CVS:Normal, ABDOMEN:Normal, MSK:Normal, SKIN:Normal, NEURO:Normal, :Normal laboratory and microbiology Laboratory Tests 07/14/25 04:38 Test 07/14/25 04:38 Range/Units Serum Glucose 94 74-106 mg/dL Microbiology Date/Time Source Procedure Growth Status 07/13/25 09:54 Blood Blood Culture - Preliminary NO GROWTH AFTER 24 HOURS OF INCUBATION. 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
[2025-07-14] MEDS: LEVOTHYROXINE SODIUM 25 MCG TAB PO ONE (10:50)
--- NOTE | 2025-07-14 11:05 | DVHINCON2 ---
Date of service: Jul 14, 2025 Referring Physician Hospitalist Reason for Consultation obstructive uropathy History of Present Illness History Source: Patient, RN Notes, MD Notes, Old Records Exam Limitations: No limitations HPI 50-year-old male who presents to the ED with acute onset right flank and abdominal pain starting early this morning. Pain is associated with nausea and vomiting. He has history of right kidney stones and an enlarged spleen and reports that the current symptoms are similar to prior kidney stones episode. Home Meds Reported Medications Levothyroxine Sodium (Levothyroxine Sodium) 25 Mcg Tab, 10 MCG PO QAM, MCG 02/02/16 Past Medical History Patient Family History: Patient reports no known family medical history. H&P Exam Vital Signs Vital Signs Date Time Temp Pulse Resp B/P (MAP) Pulse Ox O2 Delivery O2 Flow Rate FiO2 07/14/25 09:02 98.2 83 17 118/78 (91) 99 98.2 07/14/25 08:00 Room Air* 0 21 Labs/Xrays [place] [id number] Ph: [phone] DIAGNOSTIC IMAGING Diagnostic Imaging Report : [id number] Signed PATIENT: MAX DALEY ACCT: [id number] UNIT: [id number] : 1975 LOC: ER ROOM / BED: / AGE / SEX: 50 / M ADM STATUS: REG ER SERVICE [id number] ORDERING PHYSICIAN: NIMCO BELTRAN MD PROCEDURE(s): ABPLIV - CT AB PEL WITH IV CON ONLY REASON: abdominal pain ORDER NUMBER(s): [id number], ACCESSION NUMBER(s): [id number] CLINICAL INFORMATION: abdominal pain. TECHNIQUE: Axial CT images of the abdomen and pelvis were obtained after the uneventful administration of 100 mL Omnipaque 300 IV contrast. Coronal and sagittal reformatted images were obtained, reviewed, and stored. All CT scans at this medical facility are performed using dose modulation techniques as appropriate to a performed exam including the following: Automated exposure control was utilized; adjustment of the MA and/or KV according to patient size; and use of iterative reconstruction technique. CTDIvol = 6.37 mGy DLP = 410.45 mGy-cm COMPARISON: None FINDINGS: Motion limited study. Lung bases: Lung bases are clear. Liver: Hepatic steatosis. Biliary: Cholecystectomy. Spleen: Splenic varices, gastric varices and additional varices in the upper abdomen. Pancreas: Grossly unremarkable given the limitations of the exam. Adrenal glands: Grossly unremarkable. Kidneys: The moderate right hydronephrosis and hydroureter with suspected obstructing 3.5 mm calculus in the proximal right ureter, although portions of the course of the ureter are obscured by motion artifact, and correlation with c linical findings is needed. Aorta/Vascular: No aneurysm or significant calcification. Lymph Nodes: No mass or lymphadenopathy. Bowel/mesentery: No small bowel obstruction. No free air or free fluid. Appendix is visualized and appears grossly unremarkable. Moderate stool in the colon. Pelvic organs: Grossly unremarkable. Bladder: Underdistended and not well evaluated. Abdominal wall: No mass or hernia. Bones: No acute fracture or focal intraosseous lesion. IMPRESSION: 1. Motion limited study. 2. Wdbb-me-keptmnel right hydronephrosis with suspected obstructing 3.5 mm calculus in the proximal right ureter, although portions of the right ureter are obscured by motion artifact. Correlation with clinical findings is needed. 3. Upper abdominal varices. 4. Hepatic steatosis. 5. Additional findings as described above. ATED BY: JESÚS PERAZA DO DICTATED DATE/TIME: 07/13/25934 SIGNED BY: JESÚS PERAZA DO SIGNED DATE/TIME: 07/13/25934 CC: Labs Test 07/14/25 04:38 07/13/25 12:42 07/13/25 09:54 07/13/25 08:39 Range/Units White Blood Count 6.9 4.4-10.8 10^3/uL Red Blood Count 4.22 L 4.5-5.90 10^6/uL Hemoglobin 13.3 #L 13.5-17.5 g/dL Hematocrit 38.5 #L 41.0-53.0 % Mean Corpuscular Volume 91.3 80.0-100.0 fL Mean Corpuscular Hemoglobin 31.7 28.0-32.0 pg Mean Corpuscular Hemoglobin Concent 34.7 32.0-36.0 g/dL Red Cell Distribution Width 13.9 11.8-14.3 % Platelet Count 90 L 140-450 10^3/uL Mean Platelet Volume 9.7 6.9-10.8 fL Neutrophils (%) (Auto) 87.5 H 37.0-80.0 % Lymphocytes (%) (Auto) 5.8 L 10.0-50.0 % Monocytes (%) (Auto) 6.0 0.0-12.0 % Eosinophils (%) (Auto) 0.6 0.0-7.0 % Basophils (%) (Auto) 0.1 0.0-2.0 % Neutrophils # (Auto) 6.0 1.6-8.6 10 ^3/uL Lymphocytes # (Auto) 0.4 0.4-5.4 10 ^3/uL Monocytes # (Auto) 0.4 0-1.3 10 ^3/uL Eosinophils # (Auto) 0 0-0.8 10 ^3/uL Basophils # (Auto) 0 0-0.2 10 ^3/uL Nucleated Red Blood Cells 0.1 % Sodium Level 142 136-145 mmol/L Potassium Level 4.0 3.5-5.1 mmol/L Chloride Level 109 H 98-107 mmol/L Carbon Dioxide Level 24 20-31 mmol/L Anion Gap 9 5-15 Blood Urea Nitrogen 21 # 9-23 mg/dL Creatinine 1.41 H 0.700-1.30 mg/dL Glomerular Filtration Rate Calc 61 >90 mL/min BUN/Creatinine Ratio 14.9 10.0-20.0 Serum Glucose 94 74-106 mg/dL Calcium Level 8.6 L 8.7-10.4 mg/dL Total Bilirubin 1.0 0.2-1.0 mg/dL Aspartate Amino Transferase (AST) 18 13-40 U/L Alanine Aminotransferase (ALT) 17 7-40 U/L Alkaline Phosphatase 64 46-116 U/L Total Protein 6.0 5.7-8.2 g/dL Albumin 3.8 3.2-4.8 g/dL Lactic Acid Level 1.1 0.4-2.0 mmol/L Thyroid Stimulating Hormone (TSH) 21.99 H 0.55-4.78 uIU/mL Lipase 137 H 12-53 U/L Urine Color Yellow Yellow Urine Clarity Clear Clear Urine pH 8.0 5.0-9.0 Urine Specific [place] > 1.030 1.001-1.035 Urine Protein 1+ H Negative Urine Ketones 2+ H Negative Urine Blood 2+ H Negative /uL Urine Nitrite Negative Negative Urine Bilirubin Negative Negative Urine Urobilinogen Normal Negative mg/dL Urine Leukocyte Esterase Negative Negative /uL Urine RBC 237 0 - 3 /hpf Urine Microscopic WBC 1 0-3 /HPF Urine Squamous Epithelial Cells Few <5 /hpf Urine Bacteria Few H None Seen /hpf Urine Glucose Normal Normal mg/dL Microbiology Date/Time Source Procedure Growth Status 07/13/25 09:54 Blood Blood Culture - Preliminary NO GROWTH AFTER 24 HOURS OF INCUBATION. Resulted Assessment/Plan Problem List: (1) Nephrolithiasis (2) Seizure (3) Ureteral colic Plan medical expulsive therapy - tamsulosin daily - aggressive fluids Pain control - multimodal pain management per primary team - avoid NSAIDs given renal function and liver disease Abx per primary team Trend creatinine and urine output monitor for fever No acute urology intervention at this time. -if pain becomes refractory, renal function worsens, or signs of infection consider nephrostomy vs stent Outpatient urology follow up to be arranged 1-2 weeks pt has small ureteral stone appropriate for conservative management No current evidence of urosepsis; however patient is at elevated risk for a typical presentation. If no improvement clinically in 24-48 hrs it would be appropriate to repeat imaging (non contrast) GI consult should be considered given history of gastric bleeding, hemorrhoids and previous concern for splenic vein thrombosis. Plan discussed with: Patient, Other MONAE SALAMANCA NP Jul 14, 2025 11:05
[2025-07-14] MEDS: ACETAMINOPHEN 325 MG TAB PO PRN (13:11)
[2025-07-14] MEDS: LORazepam 2MG/ML-1ML VIAL IV PRN ×2 (16:21→21:33)
--- NOTE | 2025-07-14 16:25 | DVH ---
EXAM: CT HEAD WITHOUT CONTRAST INDICATION: Fell TECHNIQUE: CT of the head without intravenous contrast. Radiation Dose : 1. Head: CT Dose: CTDI volume is 60.48 mGy. Dose-length product is 1191.81 mGy*cm The dose indicators for CT are the volume Computed Tomography (CT) Dose Index (CTDIvol) and the Dose Length Product (DLP), and are measured in units of mGy and mGy-cm, respectively. These indicators are not patient dose, but values generated from the CT scanner acquisition factors. The report includes radiation exposure data for exposures received during this examination. COMPARISON: MRI BRAIN HEAD WO CONTRAST on DOS: 06/07/25, CT HEAD WITHOUT CONTRAST on DOS: 06/06/25, CT HEAD WITHOUT CONTRAST on DOS: 09/16/24 FINDINGS: Motion artifact degrades fine detail. The cerebral parenchyma appears to be normal configuration and attenuation. The ventricles, cisterns, and sulci appear age-appropriate. There is no evidence for acute territorial infarct, hemorrhage, or mass effect. The orbits are normal. The visualized paranasal sinuses and mastoid air cells are clear. The soft tissues and osseous structures appear within normal limits. IMPRESSION: 1. No acute territorial infarct, intracranial hemorrhage, or mass effect. Radiation optimization: All CT scans at this facility use at least one of these dose optimization techniques: automated exposure control mA and/or kV adjustment per patient size (includes targeted exams where dose is matched to clinical indication) or iterative reconstruction.
[2025-07-14 16:32] LABS: Opiate Scree,Urine Pos (NEGATIVE)
[2025-07-14 16:33] LABS: Amphetamine Screen, Urine Neg (NEGATIVE); Barbiturate Scree,Urine Neg (NEGATIVE); Benzodiazephine Screen, Urine Neg (NEGATIVE); Cannabinoid Screen, Urine Pos (NEGATIVE); Cocaine Screen, Urine Neg (NEGATIVE); Phencyclidine Screen, Urine Neg (NEGATIVE)
--- NOTE | 2025-07-14 21:17 | DVHINCON2 ---
Date of service: Jul 14, [address] Ramirez Reason for Consultation Seizure History of Present Illness Mr. Reyna is a 50 years old right-handed gentleman with a history of hypothyroidism, kidney stone, arthritis, he is brought to the [facility] on 07/13/2025 with a chief complaint of back pain pain, at this time, he is awake, oriented to person, place, the history is obtained from his I saw him on 06/06/25 for seizure He woke up in the morning on 07/13/2025 with intense back pain, and he decided to come to the hospital, otherwise the patient had good sleep, no acute illness But in the hospital, the patient has had a witnessed seizure in that he was shaking all over body, nonresponsive, with a saw him around 2129, he was awake, oriented to person, place, he did not remember talking to me previously. He reported nausea, headache, and neck pain He fell off bed earlier this morning, his CT head at 3:42 p.m. was unremarkable On 06/06/2025, he remembered going to the bed in the evening, but next memory was waking up in his father's car heading the hospital, because he had seizure. In the ER, he had another seizure-like activity ( According to the ER note: at home, he had tonic-clonic activity with urinary incontinence, foaming in the mouth, the event was about 3 minutes). He denied a history of olfactory/gustatory hallucination He denied history of head trauma, intracranial infection, family history of seizure disorder He denies a history of drug/alcohol abuse UDS, 06/06/2025: Cannabinoids, 07/14/2025: Opiates, cannabinoids Plasma alcohol, 06/06/2025: Normal WBC/HB/PLT/MCV, 06/06/2025: 6/14.6/107/90, 07/14/2025: Sequential 9/13.3/9 0/91.3 BUN/CR, 07/14/2025: 21/1.41 GFR, 09/14/2024: 61 Lactic acid, 07/13/2025: 2.2 EEG, 06/08/2025: Normal CT head, 06/06/2025: No evidence of acute intracranial abnormality CT head, 07/14/2025: No acute territorial infarct, intracranial hemorrhage, or mass effect CT, abdomen/pelvis, 07/14/2025: 1. Motion limited study. 2. Sxhq-vq-jaiensoa right hydronephrosis with suspected obstructing 3.5 mm calculus in the proximal right ureter, although portions of the right ureter are obscured by motion artifact. Correlation with clinical findings is needed. 3. Upper abdominal varices. 4. Hepatic steatosis. 5. Additional findings as described above. MRI brain, 06/07/2025, 1. No acute or recent infarct. 2. No acute abnormality. Past Medical History Hypothyroidism, kidney stone, arthritis, splenomegaly Past Surgical History Hip surgery, abdominal surgery Family History: Patient reports no known family medical history. Family History Hypertension, diabetes Social History He was a tobacco smoker, he denies a history of alcohol and drug abuse Allergies: Coded Allergies: NO KNOWN ALLERGIES (Unverified , 02/02/16) Home Meds Reported Medications Levothyroxine Sodium (Levothyroxine Sodium) 25 Mcg Tab, 10 MCG PO QAM, MCG 02/02/16 Current Medications Current Medications Medications (Trade) Dose Ordered Sig/Irma Route PRN Reason Start Time Stop Time Status Last Admin Levothyroxine Sodium (Synthroid Tablet) 25 mcg QAM@0600 PO 07/15/25 06:00 Lorazepam (Ativan Inj) 0.5 mg Q6HP PRN IV ANXIETY 07/14/25 10:30 07/14/25 16:21 Lorazepam (Ativan Inj) 1 mg Q5MINP PRN IV SEIZURES 07/14/25 16:45 Review of Systems As above, the other systems are negative Vital Signs Vital Signs Date Time Temp Pulse Resp B/P (MAP) Pulse Ox O2 Delivery O2 Flow Rate FiO2 07/14/25 16:34 97.9 72 16 134/62 (86) 96 97.9 07/14/25 08:00 Room Air* 0 21 Physical Exam GENERAL EXAM: General: the patient is well developed and nourished. No acute distress. HEENT: Normocephalic, neck is supple, no carotid bruits. No mass. RESPIRATORY: Normal respiratory effort with symmetrical lung expansion. Lungs clear to auscultation. CARDIOVASCULAR: Regular rate and rhythm with no murmurs. S1, S2. ABDOMEN: Soft, nontender, normal bowel sound NEUROLOGICAL: MENTAL STATUS: Subjective SPEECH, LANGUAGE, HIGHER CORTICAL FUNCTION: no aphasia or dysathria. CRANIAL NERVES: #2: Intact visual sheriff to confrontation. The optic discs were sharp. #3,4,6: Pupils are equal, round and reactive. EOMs full and conjugate. No nystagmus. #5: Facial sensation intact in all three divisions bilaterally. Mandibular strength intact. #7: Facial muscles symmetrical and strength intact. #8: Hearing grossly normal to voice. #9,10: Uvula and soft palate rise in the midline. Swallow and voice are normal. #11: Trapezius and sternomastoid strength intact bilaterally. #12: Tongue midline. No fasciculations or atrophy. SENSATION: Sensation to touch and pinprick is normal. MOTOR: Normal tone in the upper and lower extremity. Normal muscle bulk. No fasciculations. No abnormal movements or posturing. Muscle strength of the major groups in the upper extremities is 5/5. Muscle strength of the major groups in the lower extremities is 5/5. REFLEXES: Deep tendon reflexes normal and symmetrical. No pathological reflexe s. CEREBELLAR/COORDINATION: Finger to nose is normal bilaterally. GAIT/STATION: deferred. Labs/Diagnostic Data Labs Test 07/14/25 13:10 07/14/25 04:38 07/13/25 12:42 07/13/25 09:54 Range/Units Urine Opiates Screen Pos NEGATIVE Urine Fentanyl Screen Neg NEGATIVE Urine Barbiturates Screen Neg NEGATIVE Urine Phencyclidine Screen Neg NEGATIVE Urine Amphetamines Screen Neg NEGATIVE Urine Benzodiazepines Screen Neg NEGATIVE Urine Cocaine Screen Neg NEGATIVE Urine Cannabinoids Screen Pos NEGATIVE White Blood Count 6.9 4.4-10.8 10^3/uL Red Blood Count 4.22 L 4.5-5.90 10^6/uL Hemoglobin 13.3 #L 13.5-17.5 g/dL Hematocrit 38.5 #L 41.0-53.0 % Mean Corpuscular Volume 91.3 80.0-100.0 fL Mean Corpuscular Hemoglobin 31.7 28.0-32.0 pg Mean Corpuscular Hemoglobin Concent 34.7 32.0-36.0 g/dL Red Cell Distribution Width 13.9 11.8-14.3 % Platelet Count 90 L 140-450 10^3/uL Mean Platelet Volume 9.7 6.9-10.8 fL Neutrophils (%) (Auto) 87.5 H 37.0-80.0 % Lymphocytes (%) (Auto) 5.8 L 10.0-50.0 % Monocytes (%) (Auto) 6.0 0.0-12.0 % Eosinophils (%) (Auto) 0.6 0.0-7.0 % Basophils (%) (Auto) 0.1 0.0-2.0 % Neutrophils # (Auto) 6.0 1.6-8.6 10 ^3/uL Lymphocytes # (Auto) 0.4 0.4-5.4 10 ^3/uL Monocytes # (Auto) 0.4 0-1.3 10 ^3/uL Eosinophils # (Auto) 0 0-0.8 10 ^3/uL Basophils # (Auto) 0 0-0.2 10 ^3/uL Nucleated Red Blood Cells 0.1 % Sodium Level 142 136-145 mmol/L Potassium Level 4.0 3.5-5.1 mmol/L Chloride Level 109 H 98-107 mmol/L Carbon Dioxide Level 24 20-31 mmol/L Anion Gap 9 5-15 Blood Urea Nitrogen 21 # 9-23 mg/dL Creatinine 1.41 H 0.700-1.30 mg/dL Glomerular Filtration Rate Calc 61 >90 mL/min BUN/Creatinine Ratio 14.9 10.0-20.0 Serum Glucose 94 74-106 mg/dL Calcium Level 8.6 L 8.7-10.4 mg/dL Total Bilirubin 1.0 0.2-1.0 mg/dL Aspartate Amino Transferase (AST) 18 13-40 U/L Alanine Aminotransferase (ALT) 17 7-40 U/L Alkaline Phosphatase 64 46-116 U/L Total Protein 6.0 5.7-8.2 g/dL Albumin 3.8 3.2-4.8 g/dL Lactic Acid Level 1.1 0.4-2.0 mmol/L Thyroid Stimulating Hormone (TSH) 21.99 H 0.55-4.78 uIU/mL Lipase 137 H 12-53 U/L Test 07/13/25 08:39 Range/Units Urine Color Yellow Yellow Urine Clarity Clear Clear Urine pH 8.0 5.0-9.0 Urine Specific [place] > 1.030 1.001-1.035 Urine Protein 1+ H Negative Urine Ketones 2+ H Negative Urine Blood 2+ H Negative /uL Urine Nitrite Negative Negative Urine Bilirubin Negative Negative Urine Urobilinogen Normal Negative mg/dL Urine Leukocyte Esterase Negative Negative /uL Urine RBC 237 0 - 3 /hpf Urine Microscopic WBC 1 0-3 /HPF Urine Squamous Epithelial Cells Few <5 /hpf Urine Bacteria Few H None Seen /hpf Urine Glucose Normal Normal mg/dL Microbiology Date/Time Source Procedure Growth Status 07/13/25 09:54 Blood Blood Culture - Preliminary NO GROWTH AFTER 24 HOURS OF INCUBATION. Resulted Assessment Grand mal seizure Altered mental status Status epilepticus Postictal confusion Metabolic encephalopathy Acidosis Headache Fall, neck pain, to rule out C-spine fracture Intense back pain/hematuria/kidney stone Plan/Recommendation Monitoring Supportive treatment Telemetry EEG CT CSP Ativan for seizure breakthrough Keppra 500mg IV Bid Not drive and he is cleared DMV report in the chart More recommendation per clinical course Prognosis: Poor This medical document was created using an electronic medical record system with [employer] dictation system. Although this document has been carefully reviewed, there may still be some phonetic and typographical errors. These areas are purely typographical due to imperfections of the software programs, and do not reflect any compromise in the patient's medical care. Plan discussed with: Spouse, Other DANN MCADAMS MD Jul 14, 2025 21:17
[2025-07-14] MEDS: levETIRAcetam 1000 mg/100ml 100 ML IV ONE (22:59)
[2025-07-15] VITALS (8 sets, daily range): BP systolic 96–155; BP diastolic 52–89; PULSE 56–87; RESP 16–18; TEMP 98–98.9; O2SAT 95–98
[2025-07-15] MEDS: LEVOTHYROXINE SODIUM 25 MCG TAB PO SCH (05:07)
[2025-07-15 06:32] LABS: Hematocrit 35.3 % (41.0-53.0); Hemoglobin 12.2 g/dL (13.5-17.5); Mean Corpuscular Hemoglobin 31.5 pg (28.0-32.0); Mean Corpuscular Volume 91.1 fL (80.0-100.0); Nucleated Red Blood Cells % 0.0 %
[2025-07-15 06:54] LABS: Alanine Aminotransferase 16 U/L (7-40); Albumin 3.6 g/dL (3.2-4.8); Alkaline Phosphatase 57 U/L (46-116); Anion Gap 8 (5-15); BUN/Creatinine Ratio 17.2 (10.0-20.0); Blood Urea Nitrogen 16 mg/dL (9-23); Carbon Dioxide 25 mmol/L (20-31); Glucose 95 mg/dL (74-106); Sodium 142 mmol/L (136-145); Total Protein 5.7 g/dL (5.7-8.2)
[2025-07-15 06:55] LABS: Bilirubin, Total 1.0 mg/dL (0.2-1.0); Calcium 8.4 mg/dL (8.7-10.4); Chloride 109 mmol/L (98-107); Potassium 3.5 mmol/L (3.5-5.1)
--- NOTE | 2025-07-15 08:30 | DVH ---
CLINICAL HISTORY: Fall, neck pain TECHNIQUE: CT exam of the cervical spine was performed without intravenous contrast. This exam was performed according to our departmental dose optimization program. Up-to-date CT equipment and radiation dose reduction techniques are utilized as appropriate. CTDI 19.7 DLP 588 COMPARISON: CT CERVICAL WITHOUT CONTRAST on DOS: 09/16/24 FINDINGS: The alignment of the cervical spine is normal. The vertebral body heights and intervertebral disc spaces are maintained. The prevertebral space is within normal limits. No acute fracture or dislocation is seen. There is no high-grade central canal or neural foraminal narrowing by CT. IMPRESSION: No acute fracture or dislocation.
[2025-07-15] MEDS: levETIRAcetam 500 mg/100ml 100 ML IV SCH (09:35)
--- NOTE | 2025-07-15 10:03 | DVHPN2 ---
Progress Note Date Seen: Jul 15, 2025 Medical Necessity Reason Pt with a Central, PICC or Fol: No Subjective Patient reports: No new complaints Review of Systems: HEENT:Normal, CVS:Normal, RESPIRATORY:Normal, GI:Normal, :Normal, MSK:Normal, NEURO:Normal Objective vital signs Vital Sign Date Time Temp Pulse Resp B/P (MAP) Pulse Ox O2 Delivery O2 Flow Rate FiO2 07/15/25 05:00 98.0 67 17 155/89 (111) 96 98.0 07/14/25 20:00 Room Air* 0 21 Total Intake and Output 07/14/25 07/14/25 07/15/25 15:00 23:00 07:00 Intake Total 1000 ml 920 ml 1200 ml Output Total 300 ml Balance 1000 ml 920 ml 900 ml medications Current Medications Medications Dose Ordered Sig/Irma Route Start Time Stop Time Status Last Admin Dose Admin Sodium Chloride 1,000 ml @ 100 mls/hr Q10H IV 07/13/25 12:30 07/15/25 01:20 100 MLS/HR Acetaminophen/ Hydrocodone Bitart 1 tab Q4HP PRN PO 07/13/25 12:30 07/15/25 08:40 1 TAB Ondansetron HCl 4 mg Q4HP PRN IV 07/13/25 12:30 07/15/25 08:40 4 MG Acetaminophen 650 mg Q6HP PRN PO 07/13/25 12:30 07/15/25 05:07 650 MG Morphine Sulfate 2 mg Q4HPRN PRN IV 07/13/25 12:45 07/14/25 15:19 2 MG Tamsulosin HCl 0.4 mg QPM PO 07/13/25 18:00 07/14/25 17:28 0.4 MG Levothyroxine Sodium 25 mcg QAM@0600 PO 07/15/25 06:00 07/15/25 05:07 25 MCG Lorazepam 0.5 mg Q6HP PRN IV 07/14/25 10:30 07/14/25 16:21 0.5 MG Lorazepam 1 mg Q5MINP PRN IV 07/14/25 16:45 07/14/25 21:33 1 MG Levetiracetam 100 ml @ 400 mls/hr BID IV 07/15/25 10:00 07/15/25 09:35 400 MLS/HR Examination: GENERAL:Normal, HEENT:Normal, NECK:Normal, LUNGS:Normal, CVS:Normal, ABDOMEN:Normal, MSK:Normal, SKIN:Normal, NEURO:Normal, :Normal laboratory and microbiology Laboratory Tests 07/15/25 05:34 Test 07/15/25 05:34 Range/Units Serum Glucose 95 74-106 mg/dL Microbiology Date/Time Source Procedure Growth Status 07/13/25 09:54 Blood Blood Culture - Preliminary NO GROWTH AFTER 24 HOURS OF INCUBATION. 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 portal htn #5 thrombocytopenia due to #4 #6 recent seizure/ breakthrough seizures: neuro evaltoribio advance care planning- full code- time spent 18 mins Plan discussed with: Patient My Orders My Orders Orders - BRENT ANDERSON MD Procedure Category Date Status Time Levothyroxine Tablet PHA 07/15/25 In Process (Synthroid Tablet) 06:00 Regular Diet DIET 07/14/25 Transmitted Lunch Lorazepam 2mg/Ml Inj PHA 07/14/25 In Process (Ativan Inj) 10:[address] 07/14/25 Resulted 15:42 Lorazepam 2mg/Ml Inj PHA 07/14/25 In Process (Ativan Inj) 16:45 * Neurology Consult CONS 07/14/25 Transmitted 16:32 Date of Service: Jul 15, 2025 Billing Provider: BRENT ANDERSON MD Common Visit Codes: [id number] INP/OBS CARE(HIGH) BRENT ANDERSON MD Jul 15, 2025 10:03
[2025-07-15] MEDS: LACTULOSE 20Gm/30ML SOLN PO ONE (10:15)
[2025-07-15] MEDS: MANNITOL FTV 25% 12.5 GM/50 ML 50 ML IV ONE (11:57)
[2025-07-15] MEDS: LACTULOSE 20Gm/30ML SOLN PO SCH (21:29)
--- NOTE | 2025-07-15 21:55 | DVHPN2 ---
Progress Note - Dictate Date Seen: Jul 15, 2025 Medical Necessity Reason Pt with a Central, PICC or Fol: No Subjective Mr. Reyna is a 50 years old right-handed gentleman with a history of hypothyroidism, kidney stone, arthritis, he is brought to the [facility] on 07/13/2025 with a chief complaint of back pain pain, at this time, he is awake, oriented to person, place, the history is obtained from his I saw him on 06/06/25 for seizure He woke up in the morning on 07/13/2025 with intense back pain, and he decided to come to the hospital, otherwise he had good sleep, no other acute illness But in the hospital, he had a witnessed seizure in that he was shaking all over body, nonresponsive, when I saw him around 2129, he was awake, oriented to person, place, he did not remember talking to me previously. He reported nausea, headache, and neck pain He fell off bed earlier this morning, his CT head at 3:42 p.m. was unremarkable On 06/06/2025, he remembered going to the bed in the evening, but next memory was waking up in his father's car heading the hospital, because he had seizure. In the ER, he had another seizure-like activity ( According to the ER note: at home, he had tonic-clonic activity with urinary incontinence, foaming in the mouth, the event was about 3 minutes). He denied a history of olfactory/gustatory hallucination He denied history of head trauma, intracranial infection, family history of seizure disorder He denies a history of drug/alcohol abuse I saw him in follow-up on 07/05/25, I have talked to his nurse and other medical staff, he is doing fine, no new seizure activity, he is alert and oriented x4. He reported having a weird feeling in the whole-body, and a [place] feeling before the seizure activity We have discussed about seizure treatment, in the driving restriction, recommended seizure treatment UDS, 06/06/2025: Cannabinoids, 07/14/2025: Opiates, cannabinoids Plasma alcohol, 06/06/2025: Normal WBC/HB/PLT/MCV, 06/06/2025: /14.6/107/90, 07/14/2025: Sequential 04/12.3/90/91.3 BUN/CR, 07/14/2025: 21/1.41 GFR, 09/14/2024: 61 Lactic acid, 07/13/2025: 2.2 EEG, 06/08/2025: Normal CT head, 06/06/2025: No evidence of acute intracranial abnormality CT head, 07/14/2025: No acute territorial infarct, intracranial hemorrhage, or mass effect CT C-spine, 07/15/2025: No acute fracture or dislocation CT, abdomen/pelvis, 07/14/2025: 1. Motion limited study. 2. [id number] right hydronephrosis with suspected obstructing 3.5 mm calculus in the proximal right ureter, although portions of the right ureter are obscured by motion artifact. Correlation with clinical findings is needed. 3. Upper abdominal varices. 4. Hepatic steatosis. 5. Additional findings as described above. MRI brain, 06/07/2025, 1. No acute or recent infarct. 2. No acute abnormality. vital signs Vital Sign Date Time Temp Pulse Resp B/P (MAP) Pulse Ox O2 Delivery O2 Flow Rate FiO2 07/15/25 21:01 98.5 59 17 116/75 (89) 97 98.5 07/15/25 08:00 Room Air* 0 21 Total Intake and Output 07/14/25 07/14/25 07/15/25 15:00 23:00 07:00 Intake Total 1000 ml 920 ml 1200 ml Output Total 300 ml Balance 1000 ml 920 ml 900 ml medications Current Medications Medications Dose Ordered Sig/Irma Route Start Time Stop Time Status Last Admin Dose Admin Sodium Chloride 1,000 ml @ 100 mls/hr Q10H IV 07/13/25 12:30 07/15/25 14:30 100 MLS/HR Acetaminophen/ Hydrocodone Bitart 1 tab Q4HP PRN PO 07/13/25 12:30 07/15/25 08:40 1 TAB Ondansetron HCl 4 mg Q4HP PRN IV 07/13/25 12:30 07/15/25 08:40 4 MG Acetaminophen 650 mg Q6HP PRN PO 07/13/25 12:30 07/15/25 05:07 650 MG Morphine Sulfate 2 mg Q4HPRN PRN IV 07/13/25 12:45 07/14/25 15:19 2 MG Tamsulosin HCl 0.4 mg QPM PO 07/13/25 18:00 07/15/25 18:12 0.4 MG Levothyroxine Sodium 25 mcg QAM@0600 PO 07/15/25 06:00 07/15/25 05:07 25 MCG Lorazepam 0.5 mg Q6HP PRN IV 07/14/25 10:30 07/14/25 16:21 0.5 MG Lorazepam 1 mg Q5MINP PRN IV 07/14/25 16:45 07/14/25 21:33 1 MG Levetiracetam 100 ml @ 400 mls/hr BID IV 07/15/25 10:00 07/15/25 21:30 400 MLS/HR Lactulose 30 ml BID PO 07/15/25 22:00 07/15/25 21:29 30 ML objective General: the patient is well developed and nourished. No acute distress. MENTAL STATUS: Subjective SPEECH, LANGUAGE, HIGHER CORTICAL FUNCTION: no aphasia or dysathria. CRANIAL NERVES: upils are equal, round and reactive. EOMs full and conjugate. No nystagmus. Facial sensation intact in all three divisions bilaterally. Mandibular strength intact. Facial muscles symmetrical and strength intact. Tongue midline. No fasciculations or atrophy. SENSATION: Sensation to touch and pinprick is normal. MOTOR: Normal tone in the upper and lower extremity. Normal muscle bulk. No fasciculations. No abnormal movements or posturing. Muscle strength of the major groups in the extremities is 5/5. REFLEXES: Deep tendon reflexes normal and symmetrical. No pathological reflexes. CEREBELLAR/COORDINATION: Finger to nose is normal bilaterally. GAIT/STATION: deferred laboratory and microbiology Laboratory Tests 07/15/25 05:34 Test 07/15/25 05:34 Range/Units Serum Glucose 95 74-106 mg/dL Problem List Grand mal seizure Altered mental status Status epilepticus Postictal confusion Metabolic encephalopathy Acidosis Headache Fall, neck pain, to rule out C-spine fracture Intense back pain/hematuria/kidney stone Assessment/Plan Monitoring Supportive treatment Telemetry EEG Ativan for seizure breakthrough Keppra 500mg IV Bid Not drive until he is cleared DMV report in the chart More recommendation per clinical course This medical document was created using an electronic medical record system with [employer] dictation system. Although this document has been carefully reviewed, there may still be some phonetic and typographical errors. These areas are purely typographical due to imperfections of the software programs, and do not reflect any compromise in the patient's medical care. Prognosis poor Plan discussed with: Patient, Other DANN MCADAMS MD Jul 15, 2025 21:55
--- NOTE | 2025-07-15 23:52 | DVHEEG2 ---
Neurology EEG Procedural Note Procedural Note EXAM DATE: 12/13/2024 REFERRING DOCTOR: Dr. Mcadams TECHNIQUE: Eighteen channels of EEG, 2 channels of EOG, and 1 channel of EKG were recorded using the [employer] 10/20 system. CLINICAL DATA: The patient was referred for an EEG evaluation for the evidence of seizure disorder. MEDICATIONS: See the chart BACKGROUND ACTIVITY: He slept mostly during the recording, during brief arousals, the background activity consisted of well regulated 8-9 Hz rhythmic waveforms, symmetrically distributed over both posterior quadrants and was reactive to external stimuli ACTIVATION: Hyperventilation: Not done Photic Stimulation: No photic convulsive response Sleep: Stage I & II IMPRESSION: This is a normal EEG. No focal, lateralized, or epileptiform features are noted. If clinically indicated to rule out a seizure disorder, recommend repeat EEG with sleep deprivation. The EKG channel showed a regular heart rate of 72/min. [place] [address] DANN MCADAMS MD Jul 15, 2025 23:52
[2025-07-16] VITALS (8 sets, daily range): BP systolic 105–139; BP diastolic 62–83; PULSE 52–66; RESP 16–17; TEMP 97.9–98.5; O2SAT 96–98
[2025-07-16 06:32] LABS: Hematocrit 34.0 % (41.0-53.0); Hemoglobin 11.7 g/dL (13.5-17.5); Mean Corpuscular Hemoglobin 31.2 pg (28.0-32.0); Mean Corpuscular Volume 90.7 fL (80.0-100.0); Nucleated Red Blood Cells % 0.0 %
[2025-07-16 06:45] LABS: Anion Gap 7 (5-15); Carbon Dioxide 26 mmol/L (20-31); Potassium 3.5 mmol/L (3.5-5.1); Sodium 144 mmol/L (136-145)
[2025-07-16 06:51] LABS: BUN/Creatinine Ratio 9.1 (10.0-20.0); Blood Urea Nitrogen 15 mg/dL (9-23); Glucose 83 mg/dL (74-106)
[2025-07-16 06:53] LABS: Calcium 8.3 mg/dL (8.7-10.4); Chloride 111 mmol/L (98-107)
--- NOTE | 2025-07-16 08:56 | DVH ---
Date: 07/16/2025 08:13 AM Examination: XY KUB ABDOMEN SINGLE VIEW History: right renal stone COMPARISON: None TECHNIQUE: Frontal views of the abdomen was obtained. FINDINGS: Bowel gas pattern is unremarkable. The lung bases are unremarkable. No acute osseous abnormality identified. IMPRESSION: Nonobstructive bowel gas pattern.
--- NOTE | 2025-07-16 10:09 | DVHDS2 ---
Discharge Summary Date of Admission Jul 13, 2025 at 12:26 Date of Discharge: Jul 16, 2025 Labs/Diagnostic Data: Laboratory Results Test 07/16/25 05:28 07/16/25 05:27 07/15/25 05:42 07/15/25 05:34 White Blood Count 3.9 10^3/uL (4.4-10.8) Red Blood Count 3.75 10^6/uL (4.5-5.90) Hemoglobin 11.7 g/dL (13.5-17.5) Hematocrit 34.0 % (41.0-53.0) Mean Corpuscular Volume 90.7 fL (80.0-100.0) Mean Corpuscular Hemoglobin 31.2 pg (28.0-32.0) Mean Corpuscular Hemoglobin Concent 34.4 g/dL (32.0-36.0) Red Cell Distribution Width 14.0 % (11.8-14.3) Platelet Count 74 10^3/uL (140-450) Mean Platelet Volume 9.5 fL (6.9-10.8) Neutrophils (%) (Auto) 76.9 % (37.0-80.0) Lymphocytes (%) (Auto) 12.4 % (10.0-50.0) Monocytes (%) (Auto) 9.1 % (0.0-12.0) Eosinophils (%) (Auto) 1.2 % (0.0-7.0) Basophils (%) (Auto) 0.4 % (0.0-2.0) Neutrophils # (Auto) 3.0 10 ^3/uL (1.6-8.6) Lymphocytes # (Auto) 0.5 10 ^3/uL (0.4-5.4) Monocytes # (Auto) 0.4 10 ^3/uL (0-1.3) Eosinophils # (Auto) 0 10 ^3/uL (0-0.8) Basophils # (Auto) 0 10 ^3/uL (0-0.2) Nucleated Red Blood Cells 0.0 % Thyroid Stimulating Hormone (TSH) 27.68 uIU/mL (0.55-4.78) Sodium Level 144 mmol/L (136-145) Potassium Level 3.5 mmol/L (3.5-5.1) Chloride Level 111 mmol/L (98-107) Carbon Dioxide Level 26 mmol/L (20-31) Anion Gap 7 (5-15) Blood Urea Nitrogen 15 mg/dL (9-23) Creatinine 1.64 mg/dL (0.700-1.30) Glomerular Filtration Rate Calc 51 mL/min (>90) BUN/Creatinine Ratio 9.1 (10.0-20.0) Serum Glucose 83 mg/dL (74-106) Calcium Level 8.3 mg/dL (8.7-10.4) Ammonia 33 umol/L (11-32) Total Bilirubin 1.0 mg/dL (0.2-1.0) Aspartate Amino Transferase (AST) 18 U/L (13-40) Alanine Aminotransferase (ALT) 16 U/L (7-40) Alkaline Phosphatase 57 U/L (46-116) Total Protein 5.7 g/dL (5.7-8.2) Albumin 3.6 g/dL (3.2-4.8) Test 07/14/25 13:10 07/13/25 12:42 07/13/25 09:54 07/13/25 08:39 Urine Opiates Screen Pos (NEGATIVE) Urine Fentanyl Screen Neg (NEGATIVE) Urine Barbiturates Screen Neg (NEGATIVE) Urine Phencyclidine Screen Neg (NEGATIVE) Urine Amphetamines Screen Neg (NEGATIVE) Urine Benzodiazepines Screen Neg (NEGATIVE) Urine Cocaine Screen Neg (NEGATIVE) Urine Cannabinoids Screen Pos (NEGATIVE) Lactic Acid Level 1.1 mmol/L (0.4-2.0) Lipase 137 U/L (12-53) Urine Color Yellow (Yellow) Urine Clarity Clear (Clear) Urine pH 8.0 (5.0-9.0) Urine Specific [place] > 1.030 (1.001-1.035) Urine Protein 1+ (Negative) Urine Ketones 2+ (Negative) Urine Blood 2+ /uL (Negative) Urine Nitrite Negative (Negative) Urine Bilirubin Negative (Negative) Urine Urobilinogen Normal mg/dL (Negative) Urine Leukocyte Esterase Negative /uL (Negative) Urine RBC 237 /hpf (0 - 3) Urine Microscopic WBC 1 /HPF (0-3) Urine Squamous Epithelial Cells Few /hpf (<5) Urine Bacteria Few /hpf (None Seen) Urine Glucose Normal mg/dL (Normal) Other Laboratory Tests 07/16/25 05:28 07/16/25 05:27 Brief Hx & Hospital Course: see dictated note Condition at Discharge: Fair Final Diagnosis/Problems List renal stone Discharge Disposition: Home Discharge Instruct/Medications Diet: Regular Activity: No Restrictions, As Tolerated Follow Up/Referral: fu with pcp in 1 wk Medications: script to pharmacy Scheduled Levothyroxine Sodium (Levothyroxine Sodium), 10 MCG PO QAM, (Reported) Discharge Statement: "Patient was advised to return to the ER or call 911 if any headaches, dizziness, shortness of breath, chest pain, abdominal pain, bleeding, fevers, or worsening of medical condition. Patient was counseled about treatment plan, medications, possible side effects, patientverbalized understanding. All questions were answered to the best of my ability. This discharge took greater then 30 minutes in planning, reviewing documentation, counseling the patient, and discussing with other team members." ASSESSMENT ASSESSMENT Assessment renal stone Date of Service: Jul 16, 2025 Billing Provider: BRENT ANDERSON MD Common Visit Codes: [id number] DISCH DAY >30min BRENT ANDERSON MD Jul 16, 2025 10:09
[2025-07-16] MEDS ORDERED: KEP500T PO (10:13)
[2025-07-16] MEDS ORDERED: LEVO50TA7 PO (10:13)
--- NOTE | 2025-07-16 10:18 | DVHPN2 ---
Progress Note Date Seen: Jul 16, 2025 Medical Necessity Reason Pt with a Central, PICC or Fol: No Subjective Patient reports: No new complaints Review of Systems: HEENT:Normal, CVS:Normal, RESPIRATORY:Normal, GI:Normal, :Normal, MSK:Normal, NEURO:Normal Objective vital signs Vital Sign Date Time Temp Pulse Resp B/P (MAP) Pulse Ox O2 Delivery O2 Flow Rate FiO2 07/16/25 08:35 98.1 56 17 110/62 (78) 96 98.1 07/16/25 08:00 Room Air* 0 21 Total Intake and Output 07/15/25 07/15/25 07/16/25 15:00 23:00 07:00 Intake Total 480 ml 1060 ml 1200 ml Output Total 200 ml 150 ml Balance 480 ml 860 ml 1050 ml medications Current Medications Medications Dose Ordered Sig/Irma Route Start Time Stop Time Status Last Admin Dose Admin Sodium Chloride 1,000 ml @ 100 mls/hr Q10H IV 07/13/25 12:30 07/16/25 03:48 100 MLS/HR Acetaminophen/ Hydrocodone Bitart 1 tab Q4HP PRN PO 07/13/25 12:30 07/15/25 08:40 1 TAB Ondansetron HCl 4 mg Q4HP PRN IV 07/13/25 12:30 07/15/25 08:40 4 MG Acetaminophen 650 mg Q6HP PRN PO 07/13/25 12:30 07/15/25 05:07 650 MG Morphine Sulfate 2 mg Q4HPRN PRN IV 07/13/25 12:45 07/16/25 03:43 2 MG Tamsulosin HCl 0.4 mg QPM PO 07/13/25 18:00 07/15/25 18:12 0.4 MG Levothyroxine Sodium 25 mcg QAM@0600 PO 07/15/25 06:00 07/16/25 05:33 25 MCG Lorazepam 0.5 mg Q6HP PRN IV 07/14/25 10:30 07/14/25 16:21 0.5 MG Lorazepam 1 mg Q5MINP PRN IV 07/14/25 16:45 07/14/25 21:33 1 MG Levetiracetam 100 ml @ 400 mls/hr BID IV 07/15/25 10:00 07/16/25 09:26 400 MLS/HR Lactulose 30 ml BID PO 07/15/25 22:00 07/16/25 09:26 30 ML Examination: GENERAL:Normal, HEENT:Normal, NECK:Normal, LUNGS:Normal, CVS:Normal, ABDOMEN:Normal, MSK:Normal, SKIN:Normal, NEURO:Normal, :Normal laboratory and microbiology Laboratory Tests 07/16/25 05:28 07/16/25 05:27 Test 07/16/25 05:27 Range/Units Serum Glucose 83 74-106 mg/dL Microbiology Date/Time Source Procedure Growth Status 07/13/25 09:54 Blood Blood Culture - Preliminary NO GROWTH AFTER 72 HOURS OF INCUBATION. Resulted Problem List/Assessment/Plan Problem List/Assessment/Plan #1 right renal stone with hydronephrosis: ivf, urology #2 acute renal failure ?vasomotor nephropathy: renal usg #3 hypothyroidism- uncontrolled: resume med, non compliant #4 s/p childhood abd surgery with portal htn #5 thrombocytopenia due to #4 #6 recent seizure/ breakthrough seizures: neuro toribio wilson advance care planning- full code- time spent 18 mins Plan discussed with: Patient My Orders My Orders Orders - BRENT ANDERSON MD Procedure Category Date Status Time Discharge DISCHARGE 07/16/25 Transmitted 10:15 Basic Metabolic Panel LAB 07/16/25 Transmitted 10:15 Kidney US 07/16/25 Logged 10:15 Date of Service: Jul 16, 2025 Billing Provider: BRENT ANDERSON MD Common Visit Codes: [id number] INP/OBS CARE(HIGH) BRENT ANDERSON MD Jul 16, 2025 10:18
--- NOTE | 2025-07-16 10:52 | DVHPN2 ---
Progress Note - Dictate Date Seen: Jul 16, 2025 Medical Necessity Reason Pt with a Central, PICC or Fol: No Subjective Mr. Reyna is a 50 years old right-handed gentleman with a history of hypothyroidism, kidney stone, arthritis, he is brought to the [facility] on 07/13/2025 with a chief complaint of back pain pain, at this time, he is awake, oriented to person, place, the history is obtained from his I saw him on 06/06/25 for seizure I have seen and examined the patient, I have discussing with his nurse, the case was discussed with Dr. Ramirez He is doing fine, no seizure activity UDS, 06/06/2025: Cannabinoids, 07/14/2025: Opiates, cannabinoids Plasma alcohol, 06/06/2025: Normal WBC/HB/PLT/MCV, 06/06/2025: 6/14.6/107/90, 07/14/2025: Sequential 9/13.3/90/91.3 BUN/CR, 07/14/2025: 21/1.41 GFR, 09/14/2024: 61 Lactic acid, 07/13/2025: 2.2 EEG, 06/08/2025: Normal CT head, 06/06/2025: No evidence of acute intracranial abnormality CT head, 07/14/2025: No acute territorial infarct, intracranial hemorrhage, or mass effect CT C-spine, 07/15/2025: No acute fracture or dislocation CT, abdomen/pelvis, 07/14/2025: 1. Motion limited study. 2. [id number] right hydronephrosis with suspected obstructing 3.5 mm calculus in the proximal right ureter, although portions of the right ureter are obscured by motion artifact. Correlation with clinical findings is needed. 3. Upper abdominal varices. 4. Hepatic steatosis. 5. Additional findings as described above. MRI brain, 06/07/2025, 1. No acute or recent infarct. 2. No acute abnormality. vital signs Vital Sign Date Time Temp Pulse Resp B/P (MAP) Pulse Ox O2 Delivery O2 Flow Rate FiO2 07/16/25 08:35 98.1 56 17 110/62 (78) 96 98.1 07/16/25 08:00 Room Air* 0 21 Total Intake and Output 07/15/25 07/15/25 07/16/25 15:00 23:00 07:00 Intake Total 480 ml 1060 ml 1200 ml Output Total 200 ml 150 ml Balance 480 ml 860 ml 1050 ml medications Current Medications Medications Dose Ordered Sig/Irma Route Start Time Stop Time Status Last Admin Dose Admin Sodium Chloride 1,000 ml @ 100 mls/hr Q10H IV 07/13/25 12:30 07/16/25 03:48 100 MLS/HR Acetaminophen/ Hydrocodone Bitart 1 tab Q4HP PRN PO 07/13/25 12:30 07/15/25 08:40 1 TAB Ondansetron HCl 4 mg Q4HP PRN IV 07/13/25 12:30 07/15/25 08:40 4 MG Acetaminophen 650 mg Q6HP PRN PO 07/13/25 12:30 07/15/25 05:07 650 MG Morphine Sulfate 2 mg Q4HPRN PRN IV 07/13/25 12:45 07/16/25 03:43 2 MG Tamsulosin HCl 0.4 mg QPM PO 07/13/25 18:00 07/15/25 18:12 0.4 MG Lorazepam 0.5 mg Q6HP PRN IV 07/14/25 10:30 07/14/25 16:21 0.5 MG Lorazepam 1 mg Q5MINP PRN IV 07/14/25 16:45 07/14/25 21:33 1 MG Lactulose 30 ml BID PO 07/15/25 22:00 07/16/25 09:26 30 ML Levothyroxine Sodium 50 mcg QAM@0600 PO 07/17/25 06:00 objective General: the patient is well developed and nourished. No acute distress. MENTAL STATUS: Subjective SPEECH, LANGUAGE, HIGHER CORTICAL FUNCTION: no aphasia or dysathria. CRANIAL NERVES: upils are equal, round and reactive. EOMs full and conjugate. No nystagmus. Facial sensation intact in all three divisions bilaterally. Mandibular strength intact. Facial muscles symmetrical and strength intact. Tongue midline. No fasciculations or atrophy. SENSATION: Sensation to touch and pinprick is normal. MOTOR: Normal tone in the upper and lower extremity. Normal muscle bulk. No fasciculations. No abnormal movements or posturing. Muscle strength of the major groups in the extremities is 5/5. REFLEXES: Deep tendon reflexes normal and symmetrical. No pathological reflexes. CEREBELLAR/COORDINATION: Finger to nose is normal bilaterally. GAIT/STATION: deferred laboratory and microbiology Laboratory Tests 07/16/25 05:28 07/16/25 05:27 Test 07/16/25 05:27 Range/Units Serum Glucose 83 74-106 mg/dL Problem List Grand mal seizure Altered mental status Status epilepticus Postictal confusion Metabolic encephalopathy Acidosis Assessment/Plan Monitoring Supportive treatment Telemetry Ativan for seizure breakthrough Keppra 500mg IV Bid Not drive until he is cleared DMV report in the chart More recommendation per clinical course Okay to discharge home from a neurologic point of view This medical document was created using an electronic medical record system with [employer] computerized dictation system. Although this document has been carefully reviewed, there may still be some phonetic and typographical errors. These areas are purely typographical due to imperfections of the software programs, and do not reflect any compromise in the patient's medical care. Prognosis poor Plan discussed with: Patient, Other DANN MCADAMS MD Jul 16, 2025 10:52
[2025-07-16] MEDS: LEVOTHYROXINE SODIUM 25 MCG TAB PO ONE (10:57)
--- NOTE | 2025-07-16 11:19 | DVH ---
CLINICAL HISTORY: renal failure TECHNIQUE: Complete ultrasound exam of the kidneys and bladder was performed. COMPARISON: None FINDINGS: The right kidney has normal echogenicity and measures 10.4 cm. There is no focal parenchymal abnormality or evidence for stone. There is no hydronephrosis. The left kidney has normal echogenicity and measures 9.8 cm. There is no focal parenchymal abnormality or evidence for stone. There is no hydronephrosis. The bladder is grossly unremarkable. The spleen is moderately enlarged, measuring 14.7 cm in diameter. IMPRESSION: No significant sonographic abnormality of the kidneys. Moderate prostatomegaly.
[2025-07-16 11:24] LABS: Potassium 3.6 mmol/L (3.5-5.1); Sodium 144 mmol/L (136-145)
[2025-07-16 11:25] LABS: Anion Gap 7 (5-15); Carbon Dioxide 27 mmol/L (20-31)
[2025-07-16 11:27] LABS: Calcium 7.7 mg/dL (8.7-10.4); Chloride 110 mmol/L (98-107)
[2025-07-16 11:30] LABS: BUN/Creatinine Ratio 12.7 (10.0-20.0); Blood Urea Nitrogen 18 mg/dL (9-23); Glucose 106 mg/dL (74-106)
[2025-07-16 13:08] LABS: Hepatitis B Surface Antigen Negative (Negative); Hepatitis C Antibody Negative (Negative)
[2025-07-17 01:00] VITALS: BP 115/72; PULSE 64; RESP 17; TEMP 98; O2SAT 98
[2025-07-17 05:00] VITALS: BP 109/69; PULSE 65; RESP 18; TEMP 97.8; O2SAT 95
[2025-07-17] MEDS: LEVOTHYROXINE SODIUM 25 MCG TAB PO SCH (05:40)
[2025-07-17 08:47] VITALS: BP 121/82; PULSE 60; RESP 16; TEMP 98.5; O2SAT 98
--- NOTE | 2025-07-17 09:58 | DVHPN2 ---
Progress Note Date Seen: Jul 17, 2025 Medical Necessity Reason Pt with a Central, PICC or Fol: No Subjective Patient reports: No new complaints Review of Systems: HEENT:Normal, CVS:Normal, RESPIRATORY:Normal, GI:Normal, :Normal, MSK:Normal, NEURO:Normal Objective vital signs Vital Sign Date Time Temp Pulse Resp B/P (MAP) Pulse Ox O2 Delivery O2 Flow Rate FiO2 07/17/25 08:47 98.5 60 16 121/82 (95) 98 98.5 07/16/25 20:00 Room Air* 0 21 Total Intake and Output 07/16/25 07/16/25 07/17/25 15:00 23:00 07:00 Intake Total 400 ml 1300 ml Output Total 300 ml Balance 100 ml 1300 ml medications Current Medications Medications Dose Ordered Sig/Irma Route Start Time Stop Time Status Last Admin Dose Admin Sodium Chloride 1,000 ml @ 100 mls/hr Q10H IV 07/13/25 12:30 07/17/25 05:43 100 MLS/HR Acetaminophen/ Hydrocodone Bitart 1 tab Q4HP PRN PO 07/13/25 12:30 07/15/25 08:40 1 TAB Ondansetron HCl 4 mg Q4HP PRN IV 07/13/25 12:30 07/15/25 08:40 4 MG Acetaminophen 650 mg Q6HP PRN PO 07/13/25 12:30 07/15/25 05:07 650 MG Morphine Sulfate 2 mg Q4HPRN PRN IV 07/13/25 12:45 07/16/25 03:43 2 MG Tamsulosin HCl 0.4 mg QPM PO 07/13/25 18:00 07/16/25 18:18 0.4 MG Lorazepam 0.5 mg Q6HP PRN IV 07/14/25 10:30 07/14/25 16:21 0.5 MG Lorazepam 1 mg Q5MINP PRN IV 07/14/25 16:45 07/14/25 21:33 1 MG Lactulose 30 ml BID PO 07/15/25 22:00 07/16/25 09:26 30 ML Levothyroxine Sodium 50 mcg QAM@0600 PO 07/17/25 06:00 07/17/25 05:40 50 MCG Examination: GENERAL:Normal, HEENT:Normal, NECK:Normal, LUNGS:Normal, CVS:Normal, ABDOMEN:Normal, MSK:Normal, SKIN:Normal, NEURO:Normal, :Normal laboratory and microbiology Laboratory Tests 07/16/25 11:00 07/16/25 05:28 Test 07/16/25 11:00 Range/Units Serum Glucose 106 74-106 mg/dL Microbiology Date/Time Source Procedure Growth Status 07/13/25 09:54 Blood Blood Culture - Preliminary NO GROWTH AFTER 72 HOURS OF INCUBATION. Resulted Problem List/Assessment/Plan Problem List/Assessment/Plan #1 right renal stone with hydronephrosis: ivf, urology #2 acute renal failure ?vasomotor nephropathy: improving #3 hypothyroidism- uncontrolled: resume med, non compliant #4 s/p childhood abd surgery with portal htn #5 thrombocytopenia due to #4 #6 recent seizure/ breakthrough seizures: neuro toribio wilson advance care planning- full code- time spent 18 mins Plan discussed with: Patient My Orders My Orders Orders - BRENT ANDERSON MD Procedure Category Date Status Time Discharge DISCHARGE 07/16/25 Transmitted 10:15 Kidney US 07/16/25 Resulted 10:15 Levothyroxine Tablet PHA 07/17/25 In Process (Synthroid Tablet) 06:00 Date of Service: Jul 17, 2025 Billing Provider: BRENT ANDERSON MD Common Visit Codes: [id number] INP/OBS CARE(HIGH) BRENT ANDERSON MD Jul 17, 2025 09:58
[2025-07-17] MEDS ORDERED: TAMS-35 PO (09:59)
== END 2025-07-17 12:15 | disposition home or self-care (01) | DRG 465 ==
LOC: EDBD 07:37 → ER 07:37 → OVERFLOW 12:26 → CENTRAL 16:25
PROVIDERS: ADMIT Internal Medicine; ATTEND Internal Medicine
DX: N13.2 Hydronephrosis with renal and ureteral calculous obstruction (principal); N17.0 Acute kidney failure with tubular necrosis; G93.41 Metabolic encephalopathy; G40.401 Other generalized epilepsy and epileptic syndromes, not intractable, with status epilepticus; E87.20 Acidosis, unspecified; D69.6 Thrombocytopenia, unspecified; E03.9 Hypothyroidism, unspecified; K76.6 Portal hypertension; K76.0 Fatty (change of) liver, not elsewhere classified; E86.0 Dehydration; F17.200 Nicotine dependence, unspecified, uncomplicated; Z87.442 Personal history of urinary calculi; Z83.3 Family history of diabetes mellitus; Z82.49 Family history of ischemic heart disease and other diseases of the circulatory system; Z91.199 Patient's noncompliance with other medical treatment and regimen due to unspecified reason
CPT/HCPCS: 36415; 70450; 72125; 74018; 74177; 76775; 80048; 80053; 80074; 80307; 81001; 82140; 83605; 83690; 84443; 85025; 87040; 95819; 96365; 99291; G0378; J1885; J2405; J2470